=== PATIENT | female | born 1960 | race Caucasian/White ===

== ENCOUNTER 2020-12-18 11:25 | Outpatient (REF) | payer MEDICARE, MEDICAID, SELFPAY ==
--- NOTE | ~2020-12-18 | MM_ITS ---
EXAMINATION: MM SCREENING DIGITAL BREAST TOMOSYNTHESIS, BILATERAL CLINICAL INFORMATION: Screening. Asymptomatic. The lifetime risk of breast cancer based on the Tyrer-Cuzick Model is 12.7%. COMPARISON: Mammography: October 17, 2019 and studies dating back to June 19, 2013 TECHNIQUE: Digital breast tomosynthesis is performed in both the craniocaudal and mediolateral oblique views along with computer-aided detection (CAD). Synthesized 2D images are generated from the tomosynthesis. FINDINGS: The breasts are heterogeneously dense, which may obscure small masses (ACR BI-RADS breast composition Category c). There are no significant masses, abnormal calcifications, or other abnormalities. MM/MM tomosynthesis screening BI IMPRESSION: There are no significant changes from prior study. ASSESSMENT: BI-RADS 1: Negative RECOMMENDATION: Routine annual mammography screening. This patient's information was entered into a reminder system with a target due date for their next mammogram.
== END 2020-12-18 11:26 | disposition home or self-care (01) ==
LOC: HO.MAMMO 11:25
PROVIDERS: Visit Provider Internal Medicine
DX: Z12.31 Encounter for screening mammogram for malignant neoplasm of breast (principal)
CPT/HCPCS: 77063; 77067

== ENCOUNTER 2021-05-05 07:46 | Outpatient (REF) | payer MEDICARE, MEDICAID, SELFPAY ==
[2021-05-05 11:32] LABS: MANUAL DIFF FLAG NO
[2021-05-05 11:41] LABS: Basophils Percent Auto 0.4 % (0-2); Eosinophils Absolute Auto 0.1 X10*3/uL (0.0-0.4); Eosinophils Percent Auto 1.5 % (0-4); Hematocrit 44.4 % (37.0-47.0); Hemoglobin 14.3 g/dl (12.0-16.0); Imm Gran Abs Auto 0.02 X10*3/uL (0.00-0.03); Imm Gran Pct Auto 0.3 % (0.0-0.4); Lymphocytes Absolute Auto 1.7 X10*3/uL (1.2-4.9); Lymphocytes Percent Auto 25.7 % (20-40); Mean Corpuscular HGB Conc 32.2 g/dl (31.0-35.0); Mean Corpuscular Hemoglobin 32.1 pg (27.0-33.0); Mean Corpuscular Volume 99.6 fL (80.0-98.0); Mean Platelet Volume 13.1 fL (9.4-12.3); Monocytes Absolute Auto 0.7 X10*3/uL (0.1-1.2); Neutrophils Absolute Auto 4.2 x10*3/uL (2.0-8.3); Neutrophils Percent Auto 62.1 % (45-73); Platelet Count 179 X10*3/uL (160-400); Red Blood Count 4.46 X10*6/uL (4.20-5.50); Red Cell Distribution Width 13.2 % (11.0-16.0); White Blood Count 6.7 X10*3/uL (4.8-10.8)
[2021-05-05 12:06] LABS: Alanine Aminotransferase 40 U/L (0-31); Anion Gap 12 (12-20); Aspartate Amino Transferase 30 U/L (5-31); Blood Urea Nitrogen 15 mg/dL (9-16); Carbon Dioxide 31 mmol/L (22-29); Chloride 102 mmol/L (96-108); Cholesterol 251 mg/dL; Estimated Glomerular Filt Rate > 60; Glucose Fasting 81 mg/dL (60-99); HDL Cholesterol 66 mg/dL; LDL Cholesterol Calculated 164 mg/dl; Potassium 4.5 mmol/L (3.3-5.1); Sodium 140 mmol/L (135-145); Triglycerides 106 mg/dL; Vitamin D 25-OH Total 35.8 ng/mL (>30)
== END 2021-05-05 07:47 | disposition home or self-care (01) ==
LOC: HO.HMGCLDS 07:46
PROVIDERS: Visit Provider Internal Medicine
DX: Z00.01 Encounter for general adult medical examination with abnormal findings (principal); I10 Essential (primary) hypertension
CPT/HCPCS: 36415; 80048; 80061; 82306; 84450; 84460; 85025

== ENCOUNTER 2021-07-20 08:32 | Outpatient (REF) | payer MEDICARE, MEDICAID, SELFPAY | END 2021-07-20 08:33 | disposition home or self-care (01) | LOC: HO.HOSX 08:32 | PROVIDERS: Visit Provider Physician Assistant | DX: Z13.89 Encounter for screening for other disorder (principal) ==

== ENCOUNTER 2021-11-17 08:48 | Outpatient (REF) | payer MEDICARE, MEDICAID, SELFPAY ==
[2021-11-17 10:05] LABS: Alanine Aminotransferase 54 U/L (0-31); Albumin Level 4.7 g/dL (3.5-5.0); Alkaline Phosphatase 90 U/L (39-117); Anion Gap 16 (12-20); Aspartate Amino Transferase 34 U/L (5-31); Bilirubin Total 0.7 mg/dL (0.0-1.0); Blood Urea Nitrogen 17 mg/dL (9-16); Calcium 9.9 mg/dL (8.4-10.2); Carbon Dioxide 25 mmol/L (22-29); Chloride 101 mmol/L (96-108); Cholesterol 268 mg/dL; Estimated Glomerular Filt Rate > 60; Glucose Fasting 102 mg/dL (60-99); HDL Cholesterol 78 mg/dL; LDL Cholesterol Calculated 172 mg/dl; Potassium 4.7 mmol/L (3.3-5.1); Sodium 137 mmol/L (135-145); Triglycerides 94 mg/dL
== END 2021-11-17 08:49 | disposition home or self-care (01) ==
LOC: HO.LAB 08:48
PROVIDERS: PCP Internal Medicine; Visit Provider Internal Medicine
DX: E78.5 Hyperlipidemia, unspecified (principal); I10 Essential (primary) hypertension; Z72.89 Other problems related to lifestyle
CPT/HCPCS: 36415; 80053; 80061

== ENCOUNTER 2021-12-24 12:00 | Outpatient (RCR) | payer MEDICARE, MEDICAID, SELFPAY ==
[2021-11-13 08:57] VITALS: BP 157/100; PULSE 89
== END 2022-01-11 08:39 | disposition home or self-care (01) ==
LOC: HO.PT 12:00
PROVIDERS: PCP Internal Medicine; Visit Provider Orthopaedic Surgery
DX: S42.031D Displaced fracture of lateral end of right clavicle, subsequent encounter for fracture with routine healing (principal)
CPT/HCPCS: 97110; 97140; 97161; 97530

== ENCOUNTER 2021-12-28 11:51 | Outpatient (REF) | payer MEDICARE, MEDICAID, SELFPAY ==
--- NOTE | ~2021-12-28 | MM_ITS ---
EXAMINATION: MM SCREENING DIGITAL BREAST TOMOSYNTHESIS, BILATERAL CLINICAL INFORMATION: Screening. Asymptomatic. The lifetime risk of breast cancer based on the Tyrer-Cuzick Model is 13%. COMPARISON: Mammography: 12/18/2020, 10/15/2019, 10/11/2018 TECHNIQUE: Digital breast tomosynthesis is performed in both the craniocaudal and mediolateral oblique views along with computer-aided detection (CAD). Synthesized 2D images are generated from the tomosynthesis. FINDINGS: There are scattered areas of fibroglandular density (ACR BI-RADS breast composition Category b). There are no significant masses, abnormal calcifications, or other abnormalities. Fine fibronodular parenchymal pattern is similar to prior exams and there is no developing density or interval architectural abnormality. The axilla and skin contours are unremarkable. MM/MM tomosynthesis screening BI IMPRESSION: No mammographic evidence of malignancy. ASSESSMENT: BI-RADS 1: Negative RECOMMENDATION: Routine annual mammography screening. This patient's information was entered into a reminder system with a target due date for their next mammogram.
== END 2021-12-28 11:52 | disposition home or self-care (01) ==
LOC: HO.MAMMO 11:51
PROVIDERS: PCP Internal Medicine; Visit Provider Internal Medicine
DX: Z12.31 Encounter for screening mammogram for malignant neoplasm of breast (principal)
CPT/HCPCS: 77063; 77067

== ENCOUNTER 2022-01-08 08:44 | Outpatient (REF) | payer MEDICARE, MEDICAID, SELFPAY ==
--- NOTE | ~2022-01-08 | MM_ITS ---
EXAMINATION: BONE DENSITOMETRY CLINICAL INDICATION: Osteopenia. COMPARISON: Previous BD dated 07/20/2013 and baseline BD dated 11/29/2008. TECHNIQUE: Using a Cloud[employer]ure DXA System (software version: 13.1) manufactured by [employer], dual-energy x-ray absorptiometry was performed of the lumbar spine and left hip. The images are of good technical quality. Summary results are attached. FINDINGS: AP SPINE L1-L4: Current: BMD 1.001 g/cm2, Z-score -0.4, T-score -1.5, osteopenia, 5.3% decrease from previous, 6.1% decrease from baseline (<5% change is not significant). Prior: BMD 1.057 g/cm2. Baseline: BMD 1.066 g/cm2. LEFT FEMUR, NECK: Current: BMD 0.829 g/cm2, Z-score -0.3, T-score -1.5, osteopenia. Prior: BMD 0.856 g/cm2. Baseline: BMD 0.865 g/cm2. LEFT FEMUR, TOTAL: Current: BMD 0.886 g/cm2, Z-score -0.1, T-score -1.0, normal, 4.0% increase from previous, 3.5% decrease from baseline (<5% change is not significant). Prior: BMD 0.852 g/cm2. Baseline: BMD 0.918 g/cm2. IDENTIFIED RISK FACTORS: Early menopause, history of fracture (adult), low calcium intake, secondary osteoporosis. HISTORY OF FRACTURE: Other fracture. MEDICATIONS: None listed. MM/XR DEXA axial skeleton IMPRESSION: 1. DIAGNOSIS: Osteopenia based on the lowest T-score value of -1.5 in the lumbar spine and femur neck applying World Health Organization criteria. 2. 10-YEAR FRACTURE RISK PREDICTION, FRAX: Major osteoporotic fracture (clinical spine, forearm, hip or shoulder) 13.7%. Hip fracture 1.2%. 3. Treatment Recommendations: NOF guidelines recommend consideration for treatment in postmenopausal women and men age 50 and older presenting with the following: -A hip or vertebral (clinical or morphometric) fracture. -T-score less than or equal to -2.5 at the femoral neck or spine after appropriate evaluation to exclude secondary causes. -Low bone mass at the hip or spine and a 10-year fracture probability by FRAX of greater than or equal to 3% for hip fracture or greater than or equal to 20% for major osteoporotic fracture based on the [place] adapted WHO algorithm. 4. Other Recommendations: All treatment decisions require clinical judgment and consideration of individual patient factors, including patient preferences, comorbidities, previous drug use, risk factors not captured in the FRAX model (e.g. frailty, falls, vitamin D deficiency, increased bone turnover, interval significant decline in bone density) and possible under or overestimation of fracture risk by FRAX. Additional medical evaluation for secondary cause of low bone mineral density may be appropriate. FUTURE SCAN RECOMMENDATION: People with diagnosed cases of osteoporosis or at high risk for fracture should have regular bone mineral density tests. For patients eligible for Medicare, routine testing is allowed once every 2 years. The testing frequency can be increased to one year for patients who have rapidly progressing disease, those who are receiving or discontinuing medical therapy to restore bone mass, or have additional risk factors.
== END 2022-01-08 08:45 | disposition home or self-care (01) ==
LOC: HO.MAMMO 08:44
PROVIDERS: PCP Internal Medicine; Visit Provider Internal Medicine
DX: Z13.820 Encounter for screening for osteoporosis (principal); M85.859 Other specified disorders of bone density and structure, unspecified thigh; Z78.0 Asymptomatic menopausal state
CPT/HCPCS: 77080

== ENCOUNTER 2022-04-29 10:55 | Outpatient (REF) | payer MEDICARE, MEDICAID, SELFPAY ==
--- NOTE | ~2022-04-29 | US_ITS ---
EXAMINATION: US THYROID CLINICAL INFORMATION: Nontoxic single thyroid nodule. COMPARISON: None TECHNIQUE: Linear transducer grayscale and color Doppler examination with attention to the region of the thyroid. FINDINGS: SIZE: Measurements of the thyroid lobes and nodules are given in sagittal, anteroposterior and transverse dimensions respectively. Right Thyroid Lobe: 5.4 x 1.3 x 1.4 cm, volume 5.1 mL. Parenchyma: The gland echotexture is homogeneous. Thyroid vascularity is normal. Left Thyroid Lobe: 4.9 x 1.2 x 1.2 cm, volume 3.7 mL. Parenchyma: The gland echotexture is homogeneous. Thyroid vascularity is normal. Isthmus: 0.2 cm in maximum AP dimension. Estimated total number of nodules greater than or equal to 1 cm: 1. Director Of Sustainability nodules are described as follows: 1. Location: Right mid pole. Size: 0.3 x 0.1 x 0.2 cm, volume 0.1 mL. Nodule characteristics: Composition: Solid/almost completely solid (2). Echogenicity: Isoechoic (1). Shape: Not taller than wide (0). Margins: Smooth (0). Echogenic Foci: None (0). ACR TI-RADS total points: 3 ACR TI-RADS category: 3 2. Location: Right lower pole. Size: 0.4 x 0.3 x 0.4 cm, volume 0.3 mL. Nodule characteristics: Composition: Solid (2). Echogenicity: Hypoechoic (2). Shape: Not taller than wide (0). Margins: Smooth (0). Echogenic Foci: Comet-tail artifacts (0). ACR TI-RADS total points: 4 ACR TI-RADS category: 4 3. Location: Left mid pole. Size: 0.5 x 0.4 x 0.5 cm, volume 0.04 mL. Nodule characteristics: Composition: Mixed cystic and solid (1). Echogenicity: Isoechoic (1). Shape: Not taller than wide (0). Margins: Smooth (0). Echogenic Foci: None (0). ACR TI-RADS total points: 2 ACR TI-RADS category: 2 4. Location: Isthmus. Size: 1.4 x 0.8 x 1.3 cm, volume 0.8 mL. Nodule characteristics: Composition: Solid (2). Echogenicity: Isoechoic (1). Shape: Not taller than wide (0). Margins: Smooth (0). Echogenic Foci: None (0). ACR TI-RADS total points: 3 ACR TI-RADS category: 3 NODES: No lymphadenopathy is seen in the tissue surrounding the thyroid gland. US/US thyroid IMPRESSION: Multiple benign-appearing thyroid nodules with the largest measuring 1.4 cm and corresponding to a TI-RAD Category 3. No follow-up recommended by ACR TI-RADS reference. ACR TI-RADS RECOMMENDATION REFERENCE: * TR1 (0 point) and TR2 (2 points): No FNA or follow up. * TR3 (3 points): FNA if more than or equal to 2.5 cm in maximum dimension, followup ultrasound in 1, 3 and 5 years if 1.5 to 2.4 cm in maximum dimension. * TR4 (4-6 points): FNA if more than or equal to 1.5 cm in maximum dimension, followup ultrasound in 1, 2, 3 and 5 years if 1 to 1.4 cm in maximum dimension. * TR5 (more than or equal to 7 points): FNA if more than or equal to 1 cm in maximum dimension, followup ultrasound every year for 5 years if 0.5 to 0.9 cm in maximum dimension. * TR3, TR4 or TR5 nodules that are below the size threshold for followup receive no follow up.
== END 2022-04-29 10:56 | disposition home or self-care (01) ==
LOC: HO.US 10:55
PROVIDERS: PCP Internal Medicine; Visit Provider Internal Medicine
DX: E04.1 Nontoxic single thyroid nodule (principal)
CPT/HCPCS: 76536

== ENCOUNTER 2022-05-04 11:04 | Outpatient (REF) | payer MEDICARE, MEDICAID, SELFPAY ==
[2022-05-04 13:59] LABS: Hematocrit 44.4 % (37.0-47.0); Hemoglobin 14.6 g/dl (12.0-16.0); Mean Corpuscular HGB Conc 32.9 g/dl (31.0-35.0); Mean Corpuscular Hemoglobin 31.9 pg (27.0-33.0); Mean Corpuscular Volume 96.9 fL (80.0-98.0); Platelet Count 208 X10*3/uL (160-400); Red Blood Count 4.58 X10*6/uL (4.20-5.50); Red Cell Distribution Width 13.6 % (11.0-16.0); White Blood Count 7.4 X10*3/uL (4.8-10.8)
[2022-05-04 14:27] LABS: Alanine Aminotransferase 40 U/L (0-31); Albumin Level 4.4 g/dL (3.5-5.0); Alkaline Phosphatase 92 U/L (39-117); Anion Gap 15 (12-20); Aspartate Amino Transferase 26 U/L (5-31); Bilirubin Direct < 0.2 mg/dL (0.0-0.5); Bilirubin Total 0.5 mg/dL (0.0-1.0); Blood Urea Nitrogen 11 mg/dL (9-16); Carbon Dioxide 28 mmol/L (22-29); Chloride 101 mmol/L (96-108); Cholesterol 270 mg/dL; Estimated Glomerular Filt Rate > 60; Glucose Random 94 mg/dL (60-115); HDL Cholesterol 69 mg/dL; LDL Cholesterol Calculated 174 mg/dl; Potassium 4.6 mmol/L (3.3-5.1); Sodium 139 mmol/L (135-145); Total Protein 7.2 g/dL (6.5-8.0); Triglycerides 139 mg/dL
[2022-05-04 14:42] LABS: Thyroid Stimulating Hormone 1.71 uIU/mL (0.32-4.0)
== END 2022-05-04 11:05 | disposition home or self-care (01) ==
LOC: HO.HMGCLDS 11:04
PROVIDERS: PCP Internal Medicine; Visit Provider Internal Medicine
DX: E04.1 Nontoxic single thyroid nodule (principal)
CPT/HCPCS: 36415; 80048; 80061; 80076; 84443; 85027

== ENCOUNTER → 2022-06-02 08:52 | Outpatient (BNVA) | payer MEDICARE, MEDICAID, SELFPAY | PROVIDERS: PCP Internal Medicine; Visit Provider Internal Medicine | DX: E04.2 Nontoxic multinodular goiter (principal) | CPT/HCPCS: 99202 ==

== ENCOUNTER 2022-08-19 08:46 | Outpatient (REF) | payer MEDICARE, MEDICAID, SELFPAY ==
--- NOTE | 2022-08-19 10:15 | P.BOP_ITS ---
Brief Operative Note Date of Service: 08/19/22 Pre-op diagnosis: Thyroid Nodule Procedure: This is doctor Deisy Ordoñez. This is an ultrasound-guided fine-needle aspiration report. Indication: Multinodular Thyroid Porcedure: Procedure was explained to the patient. Alternatives, the risk and benefits were discussed. Written consent was obtained. A time-out was also obtained. After sterile preparation, 1 ml of 1% lidocaine solution was applied subcutaneously for anesthetic effect. Then Fine-needle aspiration of a left isthmus 1.3 cm thyroid nodule was performed using direct ultrasound guidance to confirm accurate needle placement. Five aspirations were made using 27 gauge needles. Samples were submitted for cytology. One pass was dedicated for [employer] Gene sequencing cassandra architect testing. The patient tolerated the procedure well. Aftercare instructions were provided. Impression: Uncomplicated fine needle aspiration biopsy of a left isthmus 1.3 cm thyroid nodule under ultrasound guidance. Surgeon: Deisy Ordoñez, DO Was an Warning Coordination Meteorologist used for this Procedure?: No Estimated blood loss (mL): 0
[2022-08-19] MEDS: Lidocaine HCl 1 % MPF 5 ML VIAL SUBCUT (10:55)
== END 2022-08-19 08:47 | disposition home or self-care (01) ==
LOC: HO.US 08:46
PROVIDERS: PCP Internal Medicine; Visit Provider Internal Medicine
DX: E04.2 Nontoxic multinodular goiter (principal)
CPT/HCPCS: 10005; 88172; 88173; 88177; 88305

== ENCOUNTER → 2022-09-02 12:42 | Outpatient (BNVA) | payer MEDICARE, MEDICAID, SELFPAY | PROVIDERS: PCP Internal Medicine; Visit Provider Internal Medicine | DX: E04.2 Nontoxic multinodular goiter (principal) | CPT/HCPCS: 99212 ==

== ENCOUNTER 2022-12-29 11:51 | Outpatient (REF) | payer MEDICARE, MEDICAID, SELFPAY | END 2022-12-29 11:52 | disposition home or self-care (01) | LOC: HO.MAMMO 11:51 | PROVIDERS: Visit Provider Internal Medicine | DX: Z12.31 Encounter for screening mammogram for malignant neoplasm of breast (principal) | CPT/HCPCS: 77063; 77067 ==

== ENCOUNTER → 2022-12-29 12:15 | Outpatient (BNV) | payer MEDICARE, MEDICAID, SELFPAY | PROVIDERS: Visit Provider Radiology Diagnostic Radiology | DX: Z12.31 Encounter for screening mammogram for malignant neoplasm of breast (principal) | CPT/HCPCS: 77063; 77067 ==

== ENCOUNTER 2023-03-17 12:43 | Outpatient (REF) | payer MEDICARE, MEDICAID, SELFPAY ==
[2023-03-17 12:59] LABS: MANUAL DIFF FLAG NO
[2023-03-17 13:43] LABS: Basophils Percent Auto 0.5 % (0-2); Eosinophils Absolute Auto 0.1 X10*3/uL (0.0-0.4); Eosinophils Percent Auto 1.1 % (0-4); Hematocrit 42.9 % (37.0-47.0); Hemoglobin 14.2 g/dl (12.0-16.0); Imm Gran Abs Auto 0.02 X10*3/uL (0.00-0.03); Imm Gran Pct Auto 0.3 % (0.0-0.4); Lymphocytes Absolute Auto 2.1 X10*3/uL (1.2-4.9); Lymphocytes Percent Auto 29.1 % (20-40); Mean Corpuscular HGB Conc 33.1 g/dl (31.0-35.0); Mean Corpuscular Hemoglobin 32.6 pg (27.0-33.0); Mean Corpuscular Volume 98.6 fL (80.0-98.0); Mean Platelet Volume 12.5 fL (9.4-12.3); Monocytes Absolute Auto 0.7 X10*3/uL (0.1-1.2); Monocytes Percent Auto 10.1 % (2-11); Neutrophils Absolute Auto 4.3 x10*3/uL (2.0-8.3); Neutrophils Percent Auto 58.9 % (45-73); Platelet Count 212 X10*3/uL (160-400); Red Blood Count 4.35 X10*6/uL (4.20-5.50); Red Cell Distribution Width 12.5 % (11.0-16.0); White Blood Count 7.4 X10*3/uL (4.8-10.8)
[2023-03-17 14:17] LABS: Alanine Aminotransferase 24 U/L (0-31); Anion Gap 14 (12-20); Aspartate Amino Transferase 24 U/L (5-31); Blood Urea Nitrogen 13 mg/dL (9-16); Calcium 10.3 mg/dL (8.4-10.2); Carbon Dioxide 30 mmol/L (22-29); Chloride 100 mmol/L (96-108); Cholesterol 230 mg/dL (<200); Estimated Glomerular Filt Rate > 60; Glucose Fasting 97 mg/dL (60-99); HDL Cholesterol 70 mg/dL (>40); LDL Cholesterol Calculated 144 mg/dL (<100); Potassium 4.8 mmol/L (3.3-5.1); Sodium 139 mmol/L (135-145); Triglycerides 81 mg/dL (<150)
[2023-03-17 14:33] LABS: TSH reflex Free T4 1.29 uIU/mL (0.32-4.0)
== END 2023-03-17 12:44 | disposition home or self-care (01) ==
LOC: HO.LAB 12:43
PROVIDERS: PCP Internal Medicine; Visit Provider Internal Medicine
DX: E04.2 Nontoxic multinodular goiter (principal); E78.5 Hyperlipidemia, unspecified; E28.319 Asymptomatic premature menopause; Z83.49 Family history of other endocrine, nutritional and metabolic diseases
CPT/HCPCS: 36415; 80048; 80061; 82306; 84443; 84450; 84460; 85025

== ENCOUNTER 2023-03-23 08:07 | Outpatient (AMB) | payer MEDICARE, MEDICAID, SELFPAY ==
--- NOTE | 2023-03-23 08:21 | AM.OFFVISMDC ---
Intake Vital Signs 03/23/23 08:25 Height 5 ft 6 in Weight 145 lb 6 oz BMI 23.5 BP 124/88 Blood Pressure Location Lt brachial Position Sitting Pulse 63 Pulse Source Pulse Oximeter Pulse Oximetry (%) 98 Oxygen Delivery Method Room Air Intake Visit Reasons: AWV Allergies No Known Allergies Allergy (Verified 03/23/23 08:54) codeine Adverse Reaction (Unknown, Verified 03/23/23 08:54) Nausea Medication List - Last Reconciled 03/23/23 by Ely Terry MD blood pressure monitor check blood pressure once a day as directed lisinopril 10 mg PO DAILY metoprolol succinate ER 12.5 mg PO DAILY timolol maleate 0.5% 0 drps ophthalmic (eye) HPI AWV HPI Details AWV ? 62 year old lady with hypertension, dyslipidemia, multinodular thyroid, osteopenia femoral neck and history of early menopause, legally blind, presents for her ? Annual Wellness Visit, initial visit.? She is up-to-date with her screening mammogram, and bone density scan, the latter showing presence of osteopenia and lumbar spine and left femoral neck, normal in left femur. She is overdue for her routine cervical cancer screening,, has had a fasting lipid panel and fasting blood sugar check done earlier this month which showed LDL cholesterol at 144 normal fasting glucose. Has had a screening colonoscopy done by Dr. Morris 08/06/2013 which showed normal findings. She has had her flu shot already and shingles vaccine and Tdap, reminded to get her COVID booster ? Medical / Social History Reviewed? Past Medical History ?Yes . ? [place] of Care / Care Team list updated ?Yes . ? Surgical/Hospitalization History ?Yes . ? Current Medications (including OTC and supplements) ?Yes . ? Family History ?Yes . ? Tobacco Control form ?Yes . ? AUDIT-C (Alcohol use) form ?Yes . ? Illicit drug use in Social History ?Yes . ? Current diagnosis of depression? ?No ? Appropriate PHQ2/PHQ9 completed ?Yes . ? Data entered by ?Merchant Tailor and reviewed by provider ? Fall Risk ? Fall History? Have you had any falls with injury in the past year? ?yes. ? Have you had two or more falls in the past year? ?No . ? Fall Risk Assessment: ?1 fall in the past year, no injury. ? HRA filled out by the patient, reviewed by Provider and scanned. ? AWV ? Balance? Romberg ?Yes . ? Tandem walk ?Yes . ? Walk and Turn ?Yes . ? Rise from sit to stand ?Yes . ?Vision? Corrective lens patient legally blind ? Vision screen ? Up-to-date, currently followed at [place] [facility] building energy consultant, and also sees Dr. Villalta ?Hearing? Whisper test ?pass . ?Written Plan?Completed. See Patient Documents.? [facility] Medical History (Updated 04/15/23 @ 19:02 by Ely Terry MD) Symptomatic PVCs Hair thinning Dyslipidemia Family history of thyroid disease Multinodular thyroid Closed fracture of right clavicle Early menopause occurring in patient age younger than 45 years Osteopenia of femoral neck Legally blind Hx of retinal detachment Essential hypertension Surgical History Hx of skin graft History of broken collarbone Hx of eye surgery Family History Mother Laryngeal cancer Father Thyroid disorder Sister Thyroid disorder Social History Housing: Condominium Alcohol intake: current Alcohol intake frequency: a few times a month Patient Tobacco Use Status: Former Tobacco user Tobacco use type: Cigarette e-Cigarette/Vaping Use: Never Used Current occupational status: disabled Cognitive needs: No Hearing needs: No Vision needs: Yes Questionnaire Medicare Wellness Checkup What gender do you identify with?: female During the past 4 weeks, how much have you been bothered by emotional problems such as feeling anxious, depressed, irritable, sad or downhearted, and blue?: slightly During the past 4 weeks, has your physical & emotional health limited your social activities with family, friends, neighbors, or groups?: moderately During the past 4 weeks, how much bodily pain have you generally had?: moderate pain During the past 4 weeks, was someone available to help you if you needed & wanted help?: yes, quite a bit During the past 4 weeks, what was the hardest physical activity you could do for at least 2 minutes?: light Can you get to places out of walking distance without help? (For eg., can you travel alone on buses, taxis or drive your car?): No Can you go shopping for groceries or clothes without someone's help?: No Can you prepare your own meals?: Yes Can you do your housework without help?: Yes Because of any health problems, do you need the help of another person with your personal care needs such as eating, bathing, dressing or getting around the house?: No Can you handle your own money without help?: Yes During the past 4 weeks, how would you rate your health in general?: good During the past 4 weeks how have things been going for you?: good & bad parts about equal Are you having difficulties driving your car?: not applicable, I don't use a car Do you always fasten your seat belt when you are in a car?: yes, usually During past 4 weeks, have you been bothered by the following: never: Sexual problems?, sometimes: Trouble eating well?, Problems using the telephone? and Tiredness or fatigue? and often: Falling or dizzy when standing up and Teeth or denture problems? Have you fallen 2 or more times in the past year?: Yes Are you afraid of falling?: Yes Are you a smoker?: no During the past 4 weeks, how many drinks of wine, beer, or other alcoholic beverages did you have?: 2-5 drinks per week Do you exercise for about 20 minutes 3 or more times a week?: yes, some of the time Have you been given information to help with the following?: no: Hazards in your house that might hurt you? and no: Keeping track of your medications? How often do you have trouble taking medicines the way you have been told to take them?: I always take medicine as prescribed How confident are you that you can control & manage most of your health problems?: not very confident What is your race?: White Mini Mental State Exam (MMSE) Orientation What is the (year) (season) (date) (day) (month)?: year (2022), season (winter), date (03/23/23), day (Tuesday) and month (February) Where are we (state) (county) (town or city) (hospital) (floor)?: state ([place]), [facility] ([place]), town or city ([place]) and hospital/clinic ([facility]) Score Score: 9 Activity of Daily Living Bathing - sponge bath, tub bath or shower: receives no assistance (gets in/out by self, if usual bathing means Dressing - getting clothes from closets & drawers, including inner/outer garments & fasteners.: gets clothes & gets completely dressed without help Toileting - going to the 'toilet room' for urine/bowel elimination & cleaning self/arranging clothes: goes to toilet room, cleans self, arranges clothes without help Transfer: moves in & out of bed and chair without help (may use support object) Continence: controls urination/bowel movements completely by self Feeding: feeds self without help Total Score: 0 Information obtained from: patient Using telephone: independent Traveling: independent Shopping: dependent Preparing meals: needs assistance Housework: needs assistance Taking medicine: needs assistance Managing money: needs assistance PHQ-9 Over the last 2 weeks, how often have you been bothered by any of the following problems? 1. Little interest or pleasure in doing things: several days 2. Feeling down, depressed, or hopeless: not at all 3. Trouble falling or staying asleep, or sleeping too much: more than half the days 4. Feeling tired or having little energy: several days 5. Poor appetite or overeating: several days 6. Feeling bad about yourself - or that you are a failure or have let yourself or your family down: not at all 7. Trouble concentrating on things, such as reading the newspaper or watching television: several days 8. Moving or speaking so slowly that other people could have noticed. Or the opposite - being so fidgety or restless that you have been moving around a lot more than usual: not at all 9. Thoughts that you would be better off or of hurting yourself in some way: not at all Total score: 6 Source: Developed by Drs. Cedric Ortiz, Laisha Rivas, Tc Quach and colleagues, with an educational gilma from [employer]. Physical Exam Vital Signs: Last Vital Signs Pulse 63 03/23/23 08:25 BP 124/88 03/23/23 08:25 Pulse Ox 98 03/23/23 08:25 Oxygen Delivery Method Room Air 03/23/23 08:25 BMI result Body Mass Index 23.5 Results Reviewed Results Reviewed: Name: Carlita Lewis Age/Sex: 62/F : 1960 Unit#: [id number] Attend Dr: Ely Terry MD Re03/17/23 Status: DEP [facility] SPEC : [id number] YAMINI: 03/17/23 STATUS: COMP REQ : [id number] RECD: 03/17/[address]: Ely Terry MD COMP: 03/17/23-1433 ENTERED: 03/17/23-[address]: ORDERED: Met Prof Fast, AST, ALT, Lipid Panel, Vitamin D 25-OH, TSH Rflx Test Result Flag Reference Site Sodium 139 135-145 mmol/L Potassium 4.8 3.3-5.1 mmol/L CL 100 96-108 mmol/L CO2 30 H 22-29 mmol/L Gap 14 12-20 BUN 13 9-16 mg/dL Creat 0.80 0.5-1.4 mg/dL EGFR > 60 NOTE: For -[place] individuals, multiply the result by 1.210. Chronic Kidney Disease: Estimated GFR < 60 mL/min/1.73m2 Severe Kidney Disease: Estimated GFR < 15 mL/min/1.73m2 FBS 97 60-99 mg/dL CA 10.3 H 8.4-10.2 mg/dL AST (GOT) 24 5-31 U/L ALT (GPT) 24 0-31 U/L Triglyceride 81 <150 mg/dL Desirable Triglyceride: less than 150 mg/dL Borderline High Triglyceride 150-199 mg/dL High Triglyceride: 200-499 mg/dL Very High Triglyceride: greater than or equal to 5OO mg/dL Cholesterol 230 H <200 mg/dL Desirable Cholesterol: less than 200 mg/dL Borderline High Cholesterol: 200-239 mg/dL High Cholesterol: greater than 239 mg/dL LDL Calculated 144 H <100 mg/dL Desirable LDL: less than 100 mg/dL Near Optimal/Above Optimal LDL: 110-129 mg/dL Borderline High LDL: 130-159 mg/dL High LDL: 160-189 mg/dL Very High LDL: greater than or equal to 190 mg/dL HDL 70 >40 mg/dL Desirable HDL: greater than 40 mg/dL Note: This HDL assay may give artificially low results in patients with liver disease. Vit D 25-OH Tot 44.0 >30 ng/mL Health Based Reference Values* < 20 ng/mL Deficient 20-30 ng/mL Insufficient > 30 ng/mL Sufficient *Radha PATEL. N Engl J Med. 2007;357:266-280 Care must be taken in interpreting Vitamin D results from different laboratories and methodologies. Published data demonstrated that results from patients undergoing hemodialysis may show a negative bias when tested with various automated 25-OH vitamin D assays when compared to LC-MS/MS. When testing samples from patients whose predominant form of Vitamin D is Vitamin D2, such as patients receiving Vitamin D2 supplementation, results that are subtherapeutic should be confirmed with another method such as LC-MS/MS. TSH 1.29 0.32-4.0 uIU/mL END OF REPORT Assessment & Plan Assessment & Plan (1) Encounter for initial annual wellness visit (AWV) in Medicare patient: Code(s): Z00.00 - Encounter for general adult medical examination without abnormal findings Plan: Medical wellness checklist, discussed with patient, reviewed and updated. Patient referred to [facility] for her routine Pap and pelvic exam. (2) Cervical cancer screening: Code(s): Z12.4 - Encounter for screening for malignant neoplasm of cervix Plan: Referred to [facility] for her cervical cancer screening and pelvic exam (3) Dyslipidemia: Code(s): E78.5 - Hyperlipidemia, unspecified Plan: Reviewed recent fasting lipid profile with patient with LDL cholesterol at 144 mg/dL . Stressed importance of adherence to low-cholesterol diet and regular exercise, at least 30 minutes 3 to 4 times a week. Advised patient to make healthy food choices, eat more fruits, vegetables, whole grains, wild caught fish and low-fat dairy. Limit amount of meat and fried or fatty food products, as well as processed foods and fast foods. (4) Osteopenia of femoral neck: Code(s): M85.859 - Other specified disorders of bone density and structure, unspecified thigh Plan: Advised to do regular exercise, take adequate calcium from dietary sources and take at least vitamin-D 3 2000 units daily (5) Legally blind: Comment: sees Dr villalta and a specialst in [place] Code(s): H54.8 - Legal blindness, as defined in [place] Plan: Followed by Ophthalmology (6) Essential hypertension: Code(s): I10 - Essential (primary) hypertension Plan: Blood pressure controlled on present treatment, currently on lisinopril 5 mg daily (7) Advanced directives, counseling/discussion: Code(s): Z71.89 - Other specified counseling Plan: Initiated the conversation about Advanced Directives. Advanced Directives help patients prepare for current and future decisions about their medical treatment and place of care. Discussed with patient that it is a process where a patients current condition and prognosis are reviewed, their wishes for information regarding their illness are elicited, and likely medical dilemmas are presented and options discussed. Healthcare proxy form and MOLST form completed today. These forms can be amended as needed, reviewed yearly and make changes as needed (8) Symptomatic PVCs: Comment: Seen by [facility] cardiology in [facility] August 2022 and started on metoprolol ER Code(s): I49.3 - Ventricular premature depolarization Plan: Continue with metoprolol ER 12.5 mg 1 a day Orders: Referrals ENDOSCOPE TECHNICIAN Referral Z12.4 - Encounter for screening for malignant neoplasm of cervix Quality Reporting (2019) Depression/Bipolar (159/160/161/177) PHQ-9: Total score: 6 Coding Level of Care Code Medicare First (G0438) Diagnoses Encounter for initial annual wellness visit (AWV) in Medicare patient Z00.00 Cervical cancer screening Z12.4 Dyslipidemia E78.5 Osteopenia of femoral neck M85.859 Legally blind H54.8 Essential hypertension I10 Advanced directives, counseling/discussion Z71.89 Symptomatic PVCs I49.3 CPT Codes Advance Care Planning - Time spent: 16-45 minutes ([id number]) Advance Care Planning Advance Care Planning discussion: Completed/Scanned Date of discussion: 03/23/23 Who was present: Patient Forms completed: Health Care Proxy and MOLST Time spent: 16-45 minutes Actual minutes spent: 16
[2023-03-23 08:25] VITALS: BP 124/88; PULSE 63; O2SAT 98; BMI 23.5
== END 2023-03-23 09:35 | disposition home or self-care (01) ==
PROVIDERS: PCP Internal Medicine; Visit Provider Internal Medicine
DX: Z00.00 Encounter for general adult medical examination without abnormal findings (principal); E78.5 Hyperlipidemia, unspecified; M85.859 Other specified disorders of bone density and structure, unspecified thigh; H54.8 Legal blindness, as defined in USA; I10 Essential (primary) hypertension; I49.3 Ventricular premature depolarization
CPT/HCPCS: 99497; G0438

== ENCOUNTER 2023-07-12 08:21 | Outpatient (REF) | payer MEDICARE, MEDICAID, SELFPAY ==
--- NOTE | ~2023-07-12 | US_ITS ---
EXAMINATION: US THYROID CLINICAL INFORMATION: Nontoxic multinodular goiter. COMPARISON: Ultrasound-guided thyroid biopsy 08/19/2022. Thyroid ultrasound 04/29/2022. TECHNIQUE: Linear transducer grayscale and color Doppler examination with attention to the region of the thyroid. FINDINGS: SIZE: Measurements of the thyroid lobes and nodules are given in sagittal, anteroposterior and transverse dimensions respectively. Right Thyroid Lobe: 4.4 x 0.9 x 1.0 cm, volume 2.2 mL. Previously 5.4 x 1.3 x 1.4 cm, volume 5.1 mL. Parenchyma: The gland echotexture is homogeneous. Thyroid vascularity is normal. Left Thyroid Lobe: 4.6 x 0.9 x 1.2 cm, volume 2.6 mL. Previously 4.9 x 1.2 x 1.2 cm, volume 3.7 mL. Parenchyma: The gland echotexture is homogeneous. Thyroid vascularity is normal. Isthmus: 0.2 cm in maximum AP dimension. Previously 0.2 cm. Estimated total number of nodules greater than or equal to 1 cm: 1. Student Recruiter nodules are described as follows: 1. Location: Isthmus. Size: 1.5 x 0.6 x 1.3 cm, volume 0.6 mL. Previously: 1.4 x 0.8 x 1.3 cm, volume 0.8 mL. Nodule characteristics: Composition: Solid (2). Echogenicity: Hypoechoic (2). Shape: Not taller than wide (0). Margins: Smooth (0). Echogenic Foci: None (0). ACR TI-RADS total points: 4 ACR TI-RADS category: 4 Significant change in size (>/= 20% in 2 dimensions and minimal increase of 2 mm or 50% or greater increase in volume): No Change in features: Not with accounting for differences in interobserver variability, as imaging findings appear similar to prior. Remainder of tiny thyroid nodules measuring 5 mm or less unchanged in size do not meet criteria for follow-up. NODES: No lymphadenopathy is seen in the tissue surrounding the thyroid gland. US/US thyroid IMPRESSION: 1.5 cm TR 4 isthmus nodule which was previously sampled is not increased in size from prior. Recommend correlation with prior pathology. Remainder of the thyroid nodules measuring 5 mm or less are unchanged in size and do not meet criteria for follow-up. ACR TI-RADS RECOMMENDATION REFERENCE: Ultrasound-guided fine-needle aspiration, follow up ultrasound, no further followup. * TR1 (0 point) and TR2 (2 points): No FNA or followup * TR3 (3 points): FNA if more than or equal to 2.5 cm in maximum dimension, follow up ultrasound in 1, 3 and 5 years if 1.5 to 2.4 cm in maximum dimension. * TR4 (4-6 points): FNA if more than or equal to 1.5 cm in maximum dimension, follow up ultrasound in 1, 2, 3 and 5 years if 1 to 1.4 cm in maximum dimension. * TR5 (more than or equal to 7 points): FNA if more than or equal to 1 cm in maximum dimension, follow up ultrasound every year for 5 years if 0.5 to 0.9 cm in maximum dimension. * TR3, TR4 or TR5 nodules that are below the size threshold for follow up receive no followup.
== END 2023-07-12 08:22 | disposition home or self-care (01) ==
LOC: HO.US 08:21
PROVIDERS: PCP Internal Medicine; Visit Provider Internal Medicine Endocrinology, Diabetes & Metabolism
DX: E04.2 Nontoxic multinodular goiter (principal)
CPT/HCPCS: 76536

== ENCOUNTER 2023-08-17 08:52 | Outpatient (REF) | payer MEDICARE, MEDICAID, SELFPAY ==
[2023-08-24 22:47] LABS: HPV mRNA E6/E7 rflx Not Detected (Not Detected)
== END 2023-08-17 08:53 | disposition home or self-care (01) ==
LOC: HO.LNP 08:52
PROVIDERS: PCP Internal Medicine; Visit Provider Advanced Practice Midwife
DX: Z01.419 Encounter for gynecological examination (general) (routine) without abnormal findings (principal); Z11.51 Encounter for screening for human papillomavirus (HPV)
CPT/HCPCS: 87624; 88142; G0101; Q0091

== ENCOUNTER 2023-08-17 08:52 | Outpatient (AMB) | payer MEDICARE, MEDICAID, SELFPAY ==
--- NOTE | 2023-08-17 09:18 | MHC.OFFVIS ---
Vital Signs 08/17/23 09:20 Height 5 ft 5 in Weight 146 lb BMI 24.3 BP 122/82 Intake Visit Reasons: New patient Annual Obstetrics Gynecology Md Required: No Information Interpreted: non-clinical & clinical Hospitality Host: Hospitality Host Present (Jeanne) Allergies No Known Allergies Allergy (Verified 08/17/23 09:21) codeine Adverse Reaction (Unknown, Verified 08/17/23 09:21) Nausea Is last menstrual period known: No Post menopausal: Yes Patient : No HPI Comments Details: She is a postmenopausal woman presenting for her new patient annual obstetrics gynecology md examination. She is doing well with no concerns. Attempting to eat a healthy diet with calcium and vitamin D and stays active with exercise. Currently not sexually active. Denies any vaginal dryness or irritation. STI testing offered; she declines. Last pap smear; unknown, many years ago. Last mammogram; 2022. Colonoscopy is UTD. Denies any family history of ovarian or colon cancer. FH breast cancer-sister in 's. [facility] Medical History Symptomatic PVCs Hair thinning Dyslipidemia Family history of thyroid disease Multinodular thyroid Closed fracture of right clavicle Early menopause occurring in patient age younger than 45 years Osteopenia of femoral neck Legally blind Hx of retinal detachment Essential hypertension Surgical History Hx of skin graft History of broken collarbone Hx of eye surgery Family History (Updated 08/17/23 @ 09:24 by POWER Ramirez) Mother Laryngeal cancer Father Thyroid disorder Stomach cancer Sister Thyroid disorder Breast cancer Social History Housing: Condominium Alcohol intake: current Alcohol intake frequency: a few times a month Patient Tobacco Use Status: Former Tobacco user Tobacco use type: Cigarette e-Cigarette/Vaping Use: Never Used Current occupational status: disabled Cognitive needs: No Hearing needs: No Vision needs: Yes Female Reproductive History Menstrual Age of Menarche: 15 control method: none Total pregnancies: 0 Date of last pap smear: 07/16/08 (negative) History of abnormal pap smear: No Date of Mammogram: 12/29/22 Review of Systems Const All systems reviewed & are unremarkable except as noted in HPI and below Reports as per HPI Eyes Reports no additional complaints ENT Reports no additional complaints Card Reports no additional complaints Resp Reports no additional complaints GI Reports as per HPI and Reports no additional complaints Reports as per HPI Musc Reports no additional complaints Skin/Breast Reports as per HPI Neuro Reports no additional complaints Psych Reports no additional complaints Endo Reports no additional complaints Lai/Lymph Reports no additional complaints Aller/Immun Reports no additional complaints Physical Exam Vital Signs: Last Vital Signs BP 122/82 08/17/23 09:20 BMI result Body Mass Index 24.3 Const General: cooperative, healthy appearing, no acute distress, well developed and alert Orientation/consciousness: patient oriented x3 HEENT Head: Yes normal to inspection Eyes General: appearance normal, both eyes and all related structures Neck Neck: Yes normal visual inspection Thyroid: solitary palpable nodule (Left side) Chest Chest palpation & inspection: normal inspection of the chest and other (no puckering, dimpling, peau de orange, retraction, discharge, masses) Breast/axilla inspection: normal inspection of the breasts Breast/axilla palpation: normal palpation of the breasts Resp Effort & Inspection: normal respiratory effort GI Inspection: Yes normal to inspection Palpation (GI): Soft to palpation Rectal Exam - Female: deferred General: Yes bladder normal to palpation External Female Exam: normal external appearance and normal appearance of the urethra Speculum Exam - Vagina: normal appearance of the vagina, normal palpation, normal vaginal discharge and vagina atrophic Speculum Exam - Cervix: normal appearance of the cervix, normal palpation and Other cervical findings present (Bled very slightly with Pap) Bimanual exam- vagina & uterus: normal bimanual exam, normal palpation, uterine size normal, bladder normal to palpation, normal palpation and non-tender Bimanual Exam- Adnexa, other: no masses Skin General skin exam: no rashes or lesions noted Rashes: no rashes Neuro General: patient oriented x3 Cognition (Neuro): normal cognition Extrem General: Yes normal to inspection Psych Attitude: cooperative Thought process: Normal thought process present Assessment & Plan Assessment & Plan (1) Encounter for well woman exam with routine gynecological exam: Code(s): Z01.419 - Encounter for gynecological examination (general) (routine) without abnormal findings Category: Medical Plan: Discussed: Current recommendations for pap smears per ASCCP guidelines. Breast awareness, periodic self breast exams and yearly mammogram. Maintain a healthy lifestyle, well balanced diet including Calcium 1,200 mg and Vitamin D 600 IU daily, and routine exercise. Contact the office with any postmenopausal bleeding. Patient verbalizes understanding and agrees to the plan of care. She was given opportunity to ask questions and all questions were answered to the best of my ability. RTO in 1 year for annual obstetrics gynecology md exam. This note is constructed using voice recognition software. While every effort has been made to ensure accuracy, firer electric locomotive errors may have been included. Coding Level of Care Code New Pt Prev Care 40-64y(43820) Diagnoses Encounter for well woman exam with routine gynecological exam Z01.419
[2023-08-17 09:20] VITALS: BP 122/82; BMI 24.3
== END 2023-08-17 10:21 | disposition home or self-care (01) ==
PROVIDERS: PCP Internal Medicine; Referring Provider Internal Medicine; Visit Provider Advanced Practice Midwife
DX: Z01.419 Encounter for gynecological examination (general) (routine) without abnormal findings (principal)
CPT/HCPCS: G0101; Q0091

== ENCOUNTER 2023-08-31 10:29 | Outpatient (REF) | payer MEDICARE, MEDICAID, SELFPAY ==
[2023-08-31 12:38] LABS: Free T4 (Free Thyroxine) 0.93 ng/dL (0.71-1.85); Thyroid Stimulating Hormone 1.24 uIU/mL (0.32-4.0)
== END 2023-08-31 10:30 | disposition home or self-care (01) ==
LOC: HO.LAB 10:29
PROVIDERS: Visit Provider Internal Medicine
DX: E04.2 Nontoxic multinodular goiter (principal)
CPT/HCPCS: 36415; 84439; 84443

== ENCOUNTER 2023-09-05 08:31 | Outpatient (AMB) | payer MEDICARE, MEDICAID, SELFPAY ==
[2023-09-05 08:38] VITALS: BP 130/90; PULSE 60; BMI 24.2
--- NOTE | 2023-09-05 08:38 | MHC.OFFVIS ---
Vital Signs 09/05/23 08:38 Height 5 ft 5 in Weight 145 lb 4.554 oz BMI 24.2 BP 130/90 H Blood Pressure Location Lt brachial Position Sitting Pulse 60 Pulse Source Pulse Oximeter Intake Visit Reasons: NTMNG-confirmed Intake Note: Patient presents today for NTMNG follow up, last seen by Dr. Grewal on 09/02/2022. Machine Hose Cutter Required: No Accompanied by: Self / Same As Patient Allergies No Known Allergies Allergy (Verified 09/05/23 08:44) codeine Adverse Reaction (Unknown, Verified 09/05/23 08:44) Nausea Medication List - Last Reconciled 09/05/23 by Cedric Lee MD blood pressure monitor check blood pressure once a day as directed lisinopril 5 mg PO DAILY metoprolol succinate ER 12.5 mg PO DAILY timolol maleate 0.5% 0 drps ophthalmic (eye) HPI Comments Details: 62 YO F with PMHx multinodular thyroid who is seen in F/U for the same. The patient last saw Dr. Grewal on 09/02/2022 Was initially diagnosed with multinodular thyroid in 2022 with thyroid US revealing a 1.4 cm isthmus nodule. She reports that she noticed this nodule just this year when she felt something pressing in her neck while attempting to swallow in an awkward position. She presented to her PCP and had an US completed which revealed bilateral thyroid nodules. She underwent FNA biopsy of this left isthmus 1.3 cm thyroid nodule 08/19/2022 with benign cytology. She presents today to review these results. Currently denies any dysphagia or hoarseness of voice. Denies sensation of swelling in the neck or difficulty breathing while lying flat. Denies any symptoms of hyper or hypothyroidism. TSH is at goal off any thyroid medication. Denies any history of head or neck irradiation. Denies any family history of thyroid cancer. Father did have his thyroid removed, but she is unsure why or what the diagnosis was. She reports her Sister had hypothyroidism. Thyroid US: 04/29/2022 Right Thyroid Lobe: 5.4 x 1.3 x 1.4 cm, volume 5.1 mL. Parenchyma: The gland echotexture is homogeneous. Thyroid vascularity is normal. Left Thyroid Lobe: 4.9 x 1.2 x 1.2 cm, volume 3.7 mL. Parenchyma: The gland echotexture is homogeneous. Thyroid vascularity is normal. Isthmus: 0.2 cm in maximum AP dimension. Estimated total number of nodules greater than or equal to 1 cm: 1. Catia Designer nodules are described as follows: 1. Location: Right mid pole. ?? ? Size: 0.3 x 0.1 x 0.2 cm, volume 0.1 mL. ?? ? Nodule characteristics: ?? ? Composition: Solid/almost completely solid (2). ?? ? Echogenicity: Isoechoic (1). ?? ? Shape: Not taller than wide (0). ?? ? Margins: Smooth (0). ?? ? Echogenic Foci: None (0). ?? ? ACR TI-RADS total points: 3 ?? ? ACR TI-RADS category: 3 2. Location: Right lower pole. ?? ? Size: 0.4 x 0.3 x 0.4 cm, volume 0.3 mL. ?? ? Nodule characteristics: ?? ? Composition: Solid (2). ?? ? Echogenicity: Hypoechoic (2). ?? ? Shape: Not taller than wide (0). ?? ? Margins: Smooth (0). ?? ? Echogenic Foci: Comet-tail artifacts (0). ?? ? ACR TI-RADS total points: 4 ?? ? ACR TI-RADS category: 4 3. Location: Left mid pole. ?? ? Size: 0.5 x 0.4 x 0.5 cm, volume 0.04 mL. ?? ? Nodule characteristics: ?? ? Composition: Mixed cystic and solid (1). ?? ? Echogenicity: Isoechoic (1). ?? ? Shape: Not taller than wide (0). ?? ? Margins: Smooth (0). ?? ? Echogenic Foci: None (0). ?? ? ACR TI-RADS total points: 2 ?? ? ACR TI-RADS category: 2 4. Location: Isthmus. ?? ? Size: 1.4 x 0.8 x 1.3 cm, volume 0.8 mL. ?? ? Nodule characteristics: ?? ? Composition: Solid (2). ?? ? Echogenicity: Isoechoic (1). ?? ? Shape: Not taller than wide (0). ?? ? Margins: Smooth (0). ?? ? Echogenic Foci: None (0). ?? ? ACR TI-RADS total points: 3 ?? ? ACR TI-RADS category: 3 NODES: No lymphadenopathy is seen in the tissue surrounding the thyroid gland. Labs: Laboratory Tests 05/04/22 11:09 TSH 1.71 recent thyroid ultrasound did not show any change in the size of the nodule PFSH Medical History Symptomatic PVCs Hair thinning Dyslipidemia Family history of thyroid disease Multinodular thyroid Closed fracture of right clavicle Early menopause occurring in patient age younger than 45 years Osteopenia of femoral neck Legally blind Hx of retinal detachment Essential hypertension Surgical History Hx of skin graft History of broken collarbone Hx of eye surgery Family History Mother Laryngeal cancer Father Thyroid disorder Stomach cancer Sister Thyroid disorder Breast cancer Social History Housing: Condominium Alcohol intake: current Alcohol intake frequency: a few times a month Patient Tobacco Use Status: Former Tobacco user Tobacco use type: Cigarette e-Cigarette/Vaping Use: Never Used Current occupational status: disabled Cognitive needs: No Hearing needs: No Vision needs: Yes Female Reproductive History Menstrual Age of Menarche: 15 Physical Exam Vital Signs: Last Vital Signs Pulse 60 09/05/23 08:38 BP 130/90 H 09/05/23 08:38 BMI result Body Mass Index 24.2 Const Other: Thyroid gland is normal size weighs about 15 g. There are no thyroid nodules palpated Assessment & Plan Assessment & Plan (1) Multinodular thyroid: Code(s): E04.2 - Nontoxic multinodular goiter Category: Medical Plan: This 62-year-old white female with a history of left isthmus thyroid nodule status post FNA with benign cytology. Recent thyroid ultrasound showed no change in the size of the nodule. Patient appears to be clinically biochemically euthyroid. Plan is for observation. At this point, patient returned to the care of her primary care provider who could recheck a thyroid ultrasound about 2-3 years time. If the nodule changes in size or consistency, the patient returned back to endocrinology Coding Level of Care Code Est Pt Level 3 (02303) Diagnoses Multinodular thyroid E04.2
== END 2023-09-05 09:05 | disposition home or self-care (01) ==
PROVIDERS: PCP Internal Medicine; Visit Provider Internal Medicine Endocrinology, Diabetes & Metabolism
DX: E04.2 Nontoxic multinodular goiter (principal)
CPT/HCPCS: 99213

== ENCOUNTER → 2023-09-05 08:31 | Outpatient (BNVA) | payer MEDICARE, MEDICAID, SELFPAY | PROVIDERS: PCP Internal Medicine; Visit Provider Internal Medicine Endocrinology, Diabetes & Metabolism | DX: E04.2 Nontoxic multinodular goiter (principal) | CPT/HCPCS: 99212 ==

== ENCOUNTER → 2023-12-22 08:34 | Outpatient (BNVA) | payer MEDICARE, MEDICAID, SELFPAY | PROVIDERS: PCP Internal Medicine ==

== ENCOUNTER 2024-01-04 11:46 | Outpatient (REF) | payer MEDICARE, MEDICAID, SELFPAY ==
--- NOTE | ~2024-01-04 | MM_ITS ---
EXAMINATION: MM SCREENING DIGITAL BREAST TOMOSYNTHESIS, BILATERAL CLINICAL INFORMATION: Screening. Asymptomatic. COMPARISON: Mammography: Comparison is made with available priors TECHNIQUE: Digital breast mammography with tomosynthesis is performed in both the craniocaudal and mediolateral oblique views along with computer-aided detection (CAD). FINDINGS: The breasts are heterogeneously dense, which may obscure small masses (ACR BI-RADS breast composition Category c). There are no significant masses, abnormal calcifications, or other abnormalities. MM/MM tomosynthesis screening BI IMPRESSION: No mammographic evidence of malignancy. ASSESSMENT: BI-RADS BI-RADS 1 - Negative RECOMMENDATION: Routine annual mammography screening. 1 year F/U This examination should not preclude the clinical evaluation of a suspicious palpable abnormality. This patient's information was entered into a reminder system with a target due date for their next mammogram. Electronically signed by: Tiesha Morris DO 01/16/2024 05:58 PM EDT
== END 2024-01-04 11:47 | disposition home or self-care (01) ==
LOC: HO.MAMMO 11:46
PROVIDERS: PCP Internal Medicine; Visit Provider Internal Medicine
DX: Z12.31 Encounter for screening mammogram for malignant neoplasm of breast (principal)
CPT/HCPCS: 77063; 77067

== ENCOUNTER → 2024-01-04 12:15 | Outpatient (BNV) | payer MEDICARE, MEDICAID, SELFPAY | PROVIDERS: PCP Internal Medicine; Visit Provider Internal Medicine | DX: Z12.31 Encounter for screening mammogram for malignant neoplasm of breast (principal) | CPT/HCPCS: 77063; 77067 ==

== ENCOUNTER 2024-01-16 10:35 | Emergency (ER) | payer MEDICARE, MEDICAID, SELFPAY ==
--- NOTE | ~2024-01-16 | XR_ITS ---
EXAMINATION: XR LUMBOSACRAL SPINE CLINICAL INFORMATION: Lower back pain. COMPARISON: Lumbar spine radiographs dated 10/13/2010. TECHNIQUE: Three views of the lumbosacral spine. FINDINGS: The lumbar lordosis is maintained. Grade 1 anterolisthesis of L5 on S1 measuring 0.8 cm in AP dimension with chronic bilateral spondylolysis. No loss of vertebral body height. Severe loss of intervertebral disc height with degenerative endplate changes at L5-S1. No concerning lytic or blastic osseous lesion. Atherosclerotic calcifications. XR/XR lumbar spine 2-3V IMPRESSION: Grade 1 anterolisthesis of L5 on S1 with chronic bilateral spondylolysis and severe degenerative disc disease. Electronically signed by: Harvey Braun MD 01/16/2024 02:29 PM EDT
[2024-01-16 10:38] VITALS: BP 140/56; PULSE 73; O2SAT 96
[2024-01-16 10:49] VITALS: BP 136/88; PULSE 63; RESP 18; TEMP 37.2; O2SAT 99; BMI 25.0
--- NOTE | 2024-01-16 11:09 | ED_ITS ---
HPI - General Adult General Chief complaint: Back Pain/Injury Stated complaint: LOW BACK PAIN,H/O BACK ISSUES PER EMS Time Seen by Provider: 01/16/24 11:08 Source: patient and EMS Mode of arrival: EMS Limitations: no limitations History of Present Illness ED Provider: karen HPI narrative: Patient is a 63 yo female presents via EMS with PMH of PVCs, Dyslipidemia, multinodular thyroid, early menopause <45yo, osteopenia of femoral neck, legally blind, HTN, and spondylolisthesis presenting with 3 days of increasing low back pain. Reports a chronic history of spondylolisthesis and can tell this is an exacerbation of this problem. States she can't even sit, she has to lie down on the floor to find comfort. Denies any recent inciting injury, reports she did grocery shopping on and then laundry on Tuesday and this is when the exacerbation seemed to really flair up, and since Tuesday she has only been able to lie flat. Denies parathesias, saddle anesthesia, denies bowel or bladder incontinence. MD complaint: back pain Onset (ago): day(s) Location: back Related Data Home Medications ?Medication ?Instructions ?Recorded ?Confirmed timolol maleate 0.5 % eye drops 0 drp ophthalmic (eye) 05/15/21 12/01/23 metoprolol succinate 25 mg 12.5 mg PO DAILY 11/19/21 12/01/23 tablet,extended release 24 hr Previous Rx's ?Medication ?Instructions ?Recorded blood pressure monitor #1 ea 05/15/21 lisinopril 2.5 mg tablet 2.5 mg PO DAILY #30 tabs 12/26/23 cyclobenzaprine 10 mg tablet 10 mg PO TID PRN muscle spasm #10 01/16/24 tabs lidocaine 5 % topical patch 1 patch topical DAILY #15 ea 01/16/24 Allergies Allergy/AdvReac Type Severity Reaction Status Date / Time codeine AdvReac Unknown Nausea Verified 01/16/24 10:52 Review of Systems Review of Systems: As per HPI. Yes all other systems are reviewed and are negative Constitutional: Constitutional: Reports as per HPI [facility] Past Medical History Medical History Symptomatic PVCs Hair thinning Dyslipidemia Family history of thyroid disease Multinodular thyroid Closed fracture of right clavicle Early menopause occurring in patient age younger than 45 years Osteopenia of femoral neck Legally blind Hx of retinal detachment Essential hypertension Surgical History Hx of skin graft History of broken collarbone Hx of eye surgery Family History Family History Mother Laryngeal cancer Father Thyroid disorder Stomach cancer Sister Thyroid disorder Breast cancer Social History Social History Housing: Condominium Alcohol intake: current Alcohol intake frequency: a few times a month Patient Tobacco Use Status: Former Tobacco user Tobacco use type: Cigarette e-Cigarette/Vaping Use: Never Used Advance Directives: No Advance Directives Information Provided: Yes Do you have a plan to hurt others: No Plan Current occupational status: disabled Cognitive needs: No Hearing needs: No Vision needs: Yes Physical Exam ED Vital Signs: Vital Signs - 24 hr 01/16/24 10:49 Temperature 98.9 F Pulse Rate 63 Respiratory Rate 18 Blood Pressure 136/88 Pulse Oximetry 99 Oxygen Delivery Method Room Air BMI result Body Mass Index 25.0 Vital signs have been reviewed and appear to be correct. Blood pressure normal. Heart rate normal. Respiratory rate normal. Temperature normal. Oxygen saturation normal. Appearance: Alert. Oriented X3. No acute distress. Head: normocephalic, atraumatic. Eyes: Pupils equal, round and reactive to light. ENT: Pharynx normal. No tonsillar swelling or exudate. Neck: Normal inspection. Neck supple. CVS: Normal heart rate and rhythm. Pulses normal. Respiratory: No respiratory distress. Breath sounds normal. Abdomen: Soft and nontender. +BS x4 Skin: Skin warm and dry. Normal skin color. Normal skin turgor. No rashes. Extremities: No lower extremity edema. No joint swelling. Neuro/psych: Oriented X 3. No motor deficit. No sensory deficit. CN II-XII intact. Normal speech and cognition. Spine: tender to palpation at spiny process to lumbar spine. Limited ROM due to discomfort, relief found with erect spine. Const General: cooperative, healthy appearing and no acute distress Orientation/consciousness: oriented to person, oriented to place, oriented to time and patient oriented x3 Limitations: no limitations HENMT Head: Yes normocephalic and Yes atraumatic Ears: external ears normal General nose exam: Normal external nose present Face and sinus: Yes face symmetric Mouth: oropharynx normal and moist mucous membranes Throat: Yes uvula midline Eyes Pupils: Equal, round and reactive pupils present Neck Neck: Yes normal visual inspection and Yes supple Resp Effort & Inspection: normal respiratory effort and able to speak in complete sentences Auscultation: clear to auscultation bilaterally Cardio Rate: regular rate Rhythm: regular rhythm Heart sounds: S1 normal heart sound present and S2 normal heart sound present GI Palpation (GI): Soft to palpation and nontender Auscultation: normoactive bowel sounds General: Yes no CVA tenderness Back/Spine/Pelvis Back: no CVA tenderness Thoracic/Lumbar Spine: lumbar spinal tenderness Skin General skin exam: elasticity normal and turgor normal Neuro General: oriented to person, oriented to place, oriented to time, patient oriented x3, moves all extremities, no focal motor deficits and CN's II-XI intact bilaterally Cranial nerves: Yes Equal, round and reactive pupils present Cognition (Neuro): normal cognition Gait exam (Neuro): Antalgic gait present Extrem General: Yes full ROM, Yes no pedal edema and Yes no calf tenderness Psych Mental Status: mental status grossly normal Affect: normal affect Thought process: Normal thought process present Medications Administered Discontinued Medications Generic Name Dose Route Start Last Admin Trade Name Freq PRN Reason Stop Dose Admin Cyclobenzaprine HCl 10 mg 01/16/24 14:55 01/16/24 15:38 Cyclobenzaprine Hcl 10 Mg Tablet PO 01/16/24 14:56 10 mg ONCE ONE Administration Ketorolac Tromethamine 30 mg 01/16/24 14:55 01/16/24 15:36 Ketorolac Tromethamine 30 Mg/Ml Vial IM 01/16/24 14:56 30 mg ONCE ONE Administration Prednisone 50 mg 01/16/24 14:55 01/16/24 15:38 Prednisone 10 Mg Tablet PO 01/16/24 14:56 50 mg ONCE ONE Administration Medical Decision Making Medical Decision Making [facility] Narrative: Patient is a 63 yo female presents via EMS with PMH of PVCs, Dyslipidemia, multinodular thyroid, early menopause <45yo, osteopenia of femoral neck, legally blind, HTN, and spondylolisthesis presenting with 3 days of increasing low back pain. Tender to palpation of the lumbar spine, notable palpation of the spinous process on exam. Negative for radiating pain, numbness or tingling. Gait is antalgic, although the upright position is relieving. Prefers laying flat on hospital bed, this is where she finds most comfort. Given reported symptoms and physical exam findings, initial differential includes lumbar strain, lumbar radiculopathy, degenerative disc disease, disc herniation, spinal stenosis, spondylosis. Less likely vertebral fracture. Do not suspect malignancy/mass, SEA, cauda equina/cord compression. Patient initially declining pain medication, states more concerned with obtaining xray. X-ray notable for grade 1 anterolisthesis of L5 on S1 with bilateral spondylosis and severe DDD. My interpretation is in agreement with the radiologist's interpretation. Patient updated on results and states she is now willing to try pain medication, has not been taking anything other than Tylenol. Feels as though she will need PT eval if pain does not improve as she has only found relief by laying on the floor at home for the past several days. Will try toradol, flexeril and prednisone and reassess. Patient reports significant improvement in symptoms after medications given in the ED, ambulated in department with steady gait without difficulty, and states that she feels comfortable with discharge home with flexeril. She notes that she does not want additional steroids due to her glaucoma. She is requesting a referral to Dr. Joel. Return precautions discussed at bedside. Patient verbalized understanding of and agreement with plan. Differential Diagnosis Differential Diagnoses: The differential diagnosis associated with the presentation includes mechanical sprain/strain, degenerative disc disease, disc herniation, spondylosis, spondylolisthesis, cauda equina syndrome, Admission/Observation Consideration of admission/observation: Escalation of care including admission/observation considered Patient would have been admitted to the hospital had their work up had any findings where hospital admission was appropriate and their clinical presentation warranted hospital admission. Independent Interpretation I performed an independent interpretation of an: Plain X-Ray Interpretation: Lumbar xray shows anterolisthesis of L5/S1. Radiology Impression Discussion of test interpretation with radiology: I have reviewed the radiologist's reading. Radiologist Impression: FINDINGS: The lumbar lordosis is maintained. Grade 1 anterolisthesis of L5 on S1 measuring 0.8 cm in AP dimension with chronic bilateral spondylolysis. No loss of vertebral body height. Severe loss of intervertebral disc height with degenerative endplate changes at L5-S1. No concerning lytic or blastic osseous lesion. Atherosclerotic calcifications. XR/XR lumbar spine 2-3V IMPRESSION: Grade 1 anterolisthesis of L5 on S1 with chronic bilateral spondylolysis and severe degenerative disc disease. External Record Review External record reviewed: Inpatient record, Office record and Outpatient record Prescription Management I considered prescription management with: Other Discharge Plan Discharge Clinical Impression: Anterolisthesis of lumbosacral spine Patient Disposition: Home, Self-Care Instructions: Spondylolisthesis (ED) Additional Instructions: You were evaluated in the emergency department today for back pain. Your evaluation did not show signs of medical conditions requiring emergent intervention at this time. We recommended that you use ibuprofen or Tylenol per package directions every 6 hours as needed for pain. If necessary, you can alternate these medications so that you take one medication every 3 hours. For instance, at noon take ibuprofen, then at 3:00 p.m. take Tylenol, then at 6:00 p.m. take ibuprofen. You have been prescribed a muscle relaxer which you may take every 8 hours as needed for spasms. You have been prescribed 5% topical lidocaine patches which you can wear for up to 12 hours in a 24 hour period. Do not apply heat directly over the patches. Please schedule an appointment for follow-up with your primary care physician as well as Dr. Joel this week for further evaluation of your symptoms. Return to the emergency department if you experience worsening back pain, difficulty walking, fevers, numbness, tingling, incontinence, groin numbness or tingling, or any other concerning symptoms. Prescriptions: New cyclobenzaprine 10 mg tablet 10 mg PO TID PRN (Reason: muscle spasm) Qty: 10 0RF lidocaine 5 % adhesive patch,medicated 1 patch topical DAILY Qty: 15 0RF Rx Instructions: leave on most painful area for up to 12 hrs No Action lisinopril 2.5 mg tablet 2.5 mg PO DAILY Qty: 30 0RF metoprolol succinate 25 mg tablet extended release 24 hr 12.5 mg PO DAILY timolol maleate 0.5 % drops 0 drp ophthalmic (eye) (DME) blood pressure monitor Kit See Rx Instructions .Route Qty: 1 0RF Rx Instructions: check blood pressure once a day as directed Referrals: Michael Joel MD, PhD [Physician] - 1 week (FINDINGS: The lumbar lordosis is maintained. Grade 1 anterolisthesis of L5 on S1 measuring 0.8 cm in AP dimension with chronic bilateral spondylolysis. No loss of vertebral body height. Severe loss of intervertebral disc height with degenerative endplate changes at L5-S1. No concerning lytic or blastic osseous lesion. Atherosclerotic calcifications. XR/XR lumbar spine 2-3V IMPRESSION: Grade 1 anterolisthesis of L5 on S1 with chronic bilateral spondylolysis and severe degenerative disc disease.) Print Language: Amharic
[2024-01-16] MEDS: Ketorolac Tromethamine 30 MG/ML VIAL IM (15:36)
[2024-01-16] MEDS: predniSONE 10 MG TABLET 50 MG PO (15:38)
[2024-01-16] MEDS: Cyclobenzaprine HCl 10 MG TABLET PO (15:38)
[2024-01-16 16:47] VITALS: BP 145/92; PULSE 68; RESP 18; TEMP 36.2; O2SAT 99
[2024-01-16 16:59] VITALS: BP 145/92; PULSE 68; RESP 18; TEMP 36.2; O2SAT 99
== END 2024-01-16 16:59 | disposition home or self-care (01) ==
PROVIDERS: Emergency Provider Emergency Medicine; PCP Internal Medicine
DX: M43.17 Spondylolisthesis, lumbosacral region (principal); M54.50 Low back pain, unspecified; I10 Essential (primary) hypertension; H54.8 Legal blindness, as defined in USA; E78.5 Hyperlipidemia, unspecified
CPT/HCPCS: 72100; 96372; 99283; 99284; J1885

== ENCOUNTER 2024-01-18 13:49 | Outpatient (AMB) | payer MEDICARE, MEDICAID, SELFPAY ==
--- NOTE | 2024-01-18 14:04 | HO.SPINEOV ---
Intake Visit Reasons: ED f/u Intake Note: Ms. lewis is here today for a f/u after being at the ED for low back pain. Stonemason Supervisor Required: No Allergies codeine Adverse Reaction (Unknown, Verified 01/18/24 14:09) Nausea Assessment & Plan Assessment & Plan (1) Spondylolisthesis of lumbar region: Code(s): M43.16 - Spondylolisthesis, lumbar region Category: Medical Plan Dear SUN Hui, Thank you for referring Ms. Lewis to our office today. She is a pleasant 63-year-old female who comes in today with a chief complaint of low back pain which has been persistent for the past 33 years but was exacerbated last Tuesday. The patient was evaluated in the emergency department after what she describes as a long day of strenuous activity. She has had previous exacerbations of her low back pain in the past but feels as though this is worse than previous. She has tried several [id number]-[id number] medications including Tylenol and ibuprofen without significant relief of symptoms. She is currently taking cyclobenzaprine and using lidocaine patches with only minimal relief. She has been to the chiropractor multiple times in the past and effort to help treat this, and has attempted physical therapy. She did at one point find physical therapy helpful for her during a previous exacerbation. She reports that lying flat on her back in a certain position helps to alleviate some of her symptoms. Excessive activity exacerbates her pain. She denies any radicular pains down either leg, and reports no significant sensational deficits. She does not report any bowel or bladder issues. PMH: Legally blind with history of bilateral detached retina surgery, PVCs, dyslipidemia, thyroid nodules, high blood pressure, osteopenia, glaucoma. Social hx: The patient does not smoke, does not report any substance use. Medications: Lisinopril, timolol, metoprolol, cyclobenzaprine, lidocaine patches. Allergies: Codeine. Physical exam: The patient has 5/5 strength in her upper and lower extremities, but does elicit pain to bilateral iliopsoas testing. She ambulates well without assistive devices. She has difficulties with transition from lying to seated to standing. No significant sensational deficits on examination. (-) bilateral straight leg raise, (-) Babinski's, (-) Witt's, (-) clonus. Imaging review: X-ray imaging completed in our emergency department shows evidence of a notable spondylolisthesis at L5-S1 with severe degenerative disc disease causing near complete loss of the disc space at L5-S1. There is also evidence of a pars interarticularis defect at L5-S1 Impression: Carlita is a pleasant 63-year-old female who comes in today with a chief complaint of chronic low back pain that was exacerbated by long day of strenuous activity last weekend. She was evaluated in the ED here at [facility] and sent to our office for evaluation. She has tried several forms of conservative treatment in the past. I believe that her pain is most likely coming from the listhesis seen at L5-S1. This is likely progressive as a result of her pars interarticularis defect. Because of the chronic nature of this condition accompanied by the severe collapse of disc space, I would like to obtain a CT scan of the lumbar spine to evaluate for auto fusion at this level. Assuming there is none, I will send the patient for an MRI of the lumbar spine to evaluate for any nerve impingement secondary to the listhesis. Tentatively, I believe the patient would still be a good candidate for a lumbar fusion at this level to address her severe low back pain. Based on her DEXA scan imaging her highest T-score was -1.5, which puts her on the lower spectrum of osteopenia (-1.1 to -2.4 range). Before we consider this I would like to send her for a course of physical therapy and have the previously discussed imaging completed. Thank you for allowing us to care for your patient. The total time spent with this visit with this patient was 45 minutes reviewing history, physical exam, MRI imaging review, and implementation of treatment plan or further diagnostic testing Suleman Joel MD,PhD [facility] Orders: Orders XR lumbar spine 4V min Today M43.16 - Spondylolisthesis, lumbar region Coding Level of Care Code New Pt Level 4 (78625) Diagnoses Spondylolisthesis of lumbar region M43.16
== END 2024-01-18 15:12 | disposition home or self-care (01) ==
PROVIDERS: PCP Internal Medicine; Visit Provider Physician Assistant
DX: M43.16 Spondylolisthesis, lumbar region (principal)
CPT/HCPCS: 99204

== ENCOUNTER 2024-01-18 13:49 | Outpatient (REF) | payer MEDICARE, MEDICAID, SELFPAY | END 2024-01-18 13:50 | disposition home or self-care (01) | LOC: HO.HOSX 13:49 | PROVIDERS: PCP Internal Medicine; Visit Provider Physician Assistant | DX: M43.16 Spondylolisthesis, lumbar region (principal) | CPT/HCPCS: 72110; 99202 ==

== ENCOUNTER → 2024-01-18 15:01 | Outpatient (BNV) | payer MEDICARE, MEDICAID, SELFPAY | PROVIDERS: PCP Internal Medicine; Visit Provider Radiology Diagnostic Radiology | DX: M43.16 Spondylolisthesis, lumbar region (principal) | CPT/HCPCS: 72110 ==

== ENCOUNTER 2024-02-10 07:34 | Outpatient (REF) | payer MEDICARE, MEDICAID, SELFPAY | END 2024-02-10 07:35 | disposition home or self-care (01) | LOC: HO.CT 07:34 | PROVIDERS: PCP Internal Medicine; Visit Provider Physician Assistant | DX: M43.17 Spondylolisthesis, lumbosacral region (principal) | CPT/HCPCS: 72131 ==

== ENCOUNTER → 2024-02-10 07:36 | Outpatient (BNV) | payer MEDICARE, MEDICAID, SELFPAY | PROVIDERS: PCP Internal Medicine; Visit Provider Radiology Diagnostic Radiology | DX: M43.17 Spondylolisthesis, lumbosacral region (principal) | CPT/HCPCS: 72131 ==

== ENCOUNTER → 2024-04-11 07:46 | Outpatient (BNV) | payer MEDICARE, MEDICAID, SELFPAY | PROVIDERS: PCP Internal Medicine; Visit Provider Radiology Diagnostic Radiology | DX: M43.17 Spondylolisthesis, lumbosacral region (principal) | CPT/HCPCS: 72148 ==

== ENCOUNTER 2024-04-11 08:07 | Outpatient (REF) | payer MEDICARE, MEDICAID, SELFPAY ==
--- NOTE | ~2024-04-11 | MR_ITS ---
CLINICAL HISTORY: M43.17 - Spondylolisthesis, lumbosacral region MR Lumbar Spine Without Intravenous Contrast. Comparison: None Findings: No acute fracture or pathologic bone lesion. 8 mm anterolisthesis of L5 on S1 due to bilateral pars interarticularis defects at L5. Alignment is otherwise anatomic. Conus medullaris and cauda equina are normal. Spinal cord terminates posterior to L1. L1-L2: No central canal or foraminal stenosis. L2-L3: Circumferential disc bulge without central canal or foraminal stenosis. L3-L4: Circumferential disc bulge without central canal or foraminal stenosis. L4-L5: Broad-based posterior disc protrusion with annular tear. No significant central canal or foraminal stenosis. L5-S1: Anterolisthesis as described with moderate bilateral facet hypertrophy. Mild left and moderate right neural foraminal encroachment. There is some flattening of the exiting nerve root on the right Unremarkable paraspinous soft tissues. IMPRESSION: 8 mm anterolisthesis of L5 on S1 due to bilateral pars interarticularis defects. There is bilateral neural foraminal narrowing at this level, mild on the left and moderate on the right with flattening of the exiting nerve root on the right. This document has been electronically signed by: Yue Mcqueen MD on 04/12/2024 05:18:42
== END 2024-04-11 08:08 | disposition home or self-care (01) ==
LOC: HO.MRI 08:07
PROVIDERS: PCP Internal Medicine; Visit Provider Physician Assistant
DX: M43.17 Spondylolisthesis, lumbosacral region (principal)
CPT/HCPCS: 72148

== ENCOUNTER 2024-04-27 07:47 | Outpatient (REF) | payer MEDICARE, MEDICAID, SELFPAY ==
[2024-04-27 08:55] LABS: Alanine Aminotransferase 36 U/L (0-31); Anion Gap 15 (12-20); Aspartate Amino Transferase 37 U/L (5-31); Blood Urea Nitrogen 15 mg/dL (9-16); Calcium 10.3 mg/dL (8.4-10.2); Carbon Dioxide 27 mmol/L (22-29); Chloride 103 mmol/L (96-108); Cholesterol 211 mg/dL (<200); Estimated Glomerular Filt Rate > 60; Glucose Fasting 93 mg/dL (60-99); HDL Cholesterol 50 mg/dL (>40); LDL Cholesterol Calculated 142 mg/dL (<100); Potassium 4.6 mmol/L (3.3-5.1); Sodium 140 mmol/L (135-145); Triglycerides 98 mg/dL (<150)
[2024-04-27 09:14] LABS: TSH reflex Free T4 2.19 uIU/mL (0.32-4.0); Vitamin D 25-OH Total 48.5 ng/mL (>30)
== END 2024-04-27 07:48 | disposition home or self-care (01) ==
LOC: HO.LAB 07:47
PROVIDERS: PCP Internal Medicine; Visit Provider Internal Medicine
DX: E78.5 Hyperlipidemia, unspecified (principal); L65.9 Nonscarring hair loss, unspecified; E04.2 Nontoxic multinodular goiter; M85.859 Other specified disorders of bone density and structure, unspecified thigh; I10 Essential (primary) hypertension
CPT/HCPCS: 36415; 80048; 80061; 82306; 84443; 84450; 84460

== ENCOUNTER 2024-04-30 13:06 | Outpatient (AMB) | payer MEDICARE, MEDICAID, SELFPAY ==
[2024-04-30 13:34] VITALS: BP 122/80; PULSE 76; RESP 14; TEMP 36.7; O2SAT 98; BMI 24.5
--- NOTE | 2024-04-30 13:34 | MHC.PC.OV ---
Vital Signs 04/30/24 13:34 Height 5 ft 5 in Weight 147 lb BMI 24.5 BP 122/80 Blood Pressure Location Rt brachial Position Sitting Respiration 14 Pulse 76 Pulse Source Pulse Oximeter Temp 98.0 F Temp Source Oral Pulse Oximetry (%) 98 Oxygen Delivery Method Room Air Intake Visit Reasons: Annual, PE Intake Note: Pt is here today for her PE: Last mammogram 01/04/24, colonoscopy 08/06/13, papsmear 08/18/23 Allergies codeine Adverse Reaction (Unknown, Verified 05/06/24 23:16) Nausea Medication List - Last Reconciled 04/30/24 by Ely Terry MD biotin (Hair, Skin and Nails (biotin)) mcg PO blood pressure monitor check blood pressure once a day as directed lisinopril 2.5 mg PO DAILY metoprolol succinate ER 12.5 mg PO DAILY timolol maleate 0.5% 0 drps ophthalmic (eye) Tobacco use date assessed: 04/30/24 Dental Screening Dental Screen Date: 04/30/24 Did you have a dental visit in the last 12 months?: Yes Did you have a dental problem in the last 6 months where you did not have access to dental care?: No Was dental information given to patient?: Patient has dentist HPI Annual, PE HPI Details - The patient is a 63-year-old female presenting today for physical exam. - she has chronic low back pain related to grade 2 spondylolisthesis, and a pars interarticularis defect at L5-S1 contributing to the grade 2 spondylolisthesis at this area. She has been evaluated by spine surgery who has recommended surgical correction, but patient is very averse to the idea of surgery at this point in time. He then referred her to pain management to discuss pain control/conservative measures. A lumbar MRI was ordered . Patient currently getting physical therapy with an emphasis on stabilization exercises. - she has Osteopenia in the lumbar spine and left femoral regions from the 2021 bone density test. -she has been experiencing hypotensive episodes, leading to reduced Lisinopril dosage to 2.5 mg, continues to take metoprolol succinate ER 12.5 mg at bedtime to control her PVCs, currently followed by Cardiology. -she is up-to-date with her breast cancer screening, with last mammogram done 01/04/24, last screening colonoscopy 08/06/13, and up-to-date with cervical cancer screening, with last papsmear done 08/18/23 -she has history of retinal detachment in left eye, legally blind and has glaucoma, followed by Dr. Villalta. - she has history of left isthmus thyroid nodule status post FNA with benign cytology. Recent thyroid ultrasound showed no change in the size of the nodule. Patient appears to be clinically biochemically euthyroid.Plan is for observation and recheck a thyroid ultrasound about 2-3 years time. [facility] Medical History (Updated 04/30/24 @ 14:24 by Ely Terry MD) Osteopenia of multiple sites Symptomatic PVCs Hair thinning Dyslipidemia Family history of thyroid disease Multinodular thyroid Closed fracture of right clavicle Early menopause occurring in patient age younger than 45 years Legally blind Hx of retinal detachment Essential hypertension Surgical History Hx of skin graft History of broken collarbone Hx of eye surgery Family History Mother Laryngeal cancer Father Thyroid disorder Stomach cancer Sister Thyroid disorder Breast cancer Social History Housing: Condominium Alcohol intake: current Alcohol intake frequency: a few times a month Patient Tobacco Use Status: Former Tobacco user Tobacco use type: Cigarette e-Cigarette/Vaping Use: Never Used Current occupational status: disabled Cognitive needs: No Hearing needs: No Vision needs: Yes Female Reproductive History Menstrual Age of Menarche: 15 Questionnaire PHQ-9 Over the last 2 weeks, how often have you been bothered by any of the following problems? 1. Little interest or pleasure in doing things: not at all 2. Feeling down, depressed, or hopeless: not at all 3. Trouble falling or staying asleep, or sleeping too much: several days 4. Feeling tired or having little energy: several days 5. Poor appetite or overeating: several days 6. Feeling bad about yourself - or that you are a failure or have let yourself or your family down: not at all 7. Trouble concentrating on things, such as reading the newspaper or watching television: several days 8. Moving or speaking so slowly that other people could have noticed. Or the opposite - being so fidgety or restless that you have been moving around a lot more than usual: not at all 9. Thoughts that you would be better off or of hurting yourself in some way: not at all Total score: 4 Depression Screening Interpretation: Negative Depression Screening Done: Yes 79479 - PHQ-9 Billing: Yes Source: Developed by Drs. Cedric Ortiz, Laisha Rivas, Tc Quach and colleagues, with an educational gilma from [employer]. Thrive Questionnaire Date Thrive assessed: 04/30/24 I am a: Patient What is your living situation today?: I have a steady place to live Within the past 12 months, did the food you bought not last and you didn't have the money to get more?: Never true Within the past 12 months, did you worry whether your food would run out before you got money to buy more?: Never true Do you have trouble paying for medicines?: No Do you have trouble getting transportation to medical appointments?: No Do you have trouble paying your heating and electricity bill?: No Do you have trouble taking care of your child, family member or friend?: No Do you have trouble with day-to-day activities such as bathing, preparing meals, shopping, managing finances, etc.?: No Are you currently unemployed and looking for a job?: No Are you interested in more education?: No THRIVE Score: 0 AUDIT C Alcohol Use Questionnaire (AUDIT-C) 1. How often do you have a drink containing alcohol?: 2-4 times a month 2. How many drinks containing alcohol do you have on a typical day when you are drinking?: 1 or 2 3. How often do you have six or more drinks on one occasion?: Never Total Score: 2 SEJAL-7 AMB Questionnaire SEJAL-7 Date SEJAL - 7 assessed: 04/30/24 Feeling nervous, anxious, or on edge: 1 = Several days Not being able to stop or control worryin = Several days Worrying too much about different things: 1 = Several days Trouble relaxin = Not at all Being so restless that it is hard to sit still: 0 = Not at all Becoming easily annoyed or irritable: 1 = Several days Feeling afraid as if something awful might happen: 0 = Not at all Total SEJAL-7 score (0-4 normal; 5-9 mild; 10-14 moderate; 15-21 severe): 4 Source: Developed by Drs. Cedric Ortiz, Laisha Rivas, Tc Quach and colleagues, with an educational gilma from [employer]. SEJAL-7 Assessment Billing SEJAL-7 Assessment Tool: SEJAL-7 Assessment 57624 Review of Systems Const All systems reviewed & are unremarkable except as noted in HPI and below Reports as per HPI Eyes Details: Legally blind in left eye Reports no additional complaints ENT Reports no additional complaints Card Reports no additional complaints Resp Reports no additional complaints GI Reports as per HPI and Reports no additional complaints Reports as per HPI Musc Reports no additional complaints Skin/Breast Reports as per HPI Neuro Reports no additional complaints Psych Reports no additional complaints Endo Reports no additional complaints Lai/Lymph Reports no additional complaints Aller/Immun Reports no additional complaints Physical exam (Primary Care) Vital Signs: Last Vital Signs Temp 98.0 F 04/30/24 13:34 Pulse 76 04/30/24 13:34 Resp 14 04/30/24 13:34 BP 122/80 04/30/24 13:34 Pulse Ox 98 04/30/24 13:34 Oxygen Delivery Method Room Air 04/30/24 13:34 BMI result Body Mass Index 24.5 Tobacco/Smoking Status: Tobacco use Status Tobacco use date assessed 04/30/24 04/30/24 13:42 Patient Tobacco Use Status Former Tobacco user 04/30/24 13:42 Tobacco use type Cigarette 04/30/24 13:42 e-Cigarette/Vaping Use Never Used 04/30/24 13:42 PHQ-9: PHQ-9 Score PHQ-9: Total score 4 05/06/24 23:42 Depression Screening Interpretation: Negative Thrive Assessment: Date of Thrive Assessment Date Thrive assessed 04/30/24 05/06/24 23:42 Const General: cooperative, comfortable and no acute distress Nutritional Appearance: average body habitus Orientation/consciousness: patient oriented x3 HENMT Head: Yes normocephalic Ears: hearing grossly normal bilaterally and external ears normal General nose exam: Normal external nose present Face and sinus: Yes face symmetric Mouth: Normal oral and palatal mucosa present and moist mucous membranes Eyes General: appearance normal, both eyes and all related structures Neck Neck: Yes full ROM, Yes no lymphadenopathy and Yes supple Chest Breast/axilla palpation: normal palpation of the breasts Resp Effort & Inspection: normal respiratory effort and able to speak in complete sentences Auscultation: clear to auscultation bilaterally Cardio Rate: regular rate Rhythm: regular rhythm Heart sounds: S1 normal heart sound present and S2 normal heart sound present GI Palpation (GI): Soft to palpation, nontender and no guarding Auscultation: normal bowel sounds Back/Spine/Pelvis Thoracic/Lumbar Spine: paraspinal muscle tenderness bilaterally in the upper lumbar and in the mid lumbar Skin General skin exam: no rashes or lesions noted Neuro General: patient oriented x3, gait normal, moves all extremities, no focal motor deficits and CN's II-XI intact bilaterally Extrem General: Yes full ROM, Yes no pedal edema, Yes no calf tenderness and Yes normal gait Psych Appearance: grossly normal and well kempt Mental Status: mental status grossly normal Speech and movement: Normal speech and movement present Affect: normal affect Results Reviewed Results Reviewed: Name: Carlita Lewis Age/Sex: 63/F : 1960 Unit#: [id number] Attend Dr: Ely Terry MD Re04/27/24 Status: DEP [facility]: SPEC : [id number] YAMINI: 04/27/24 STATUS: COMP REQ : [id number] RECD: 04/27/[address]: Ely Terry MD COMP: 04/27/24 ENTERED: 04/27/[address]: ORDERED: Met Prof Fast, AST, ALT, Lipid Panel, Vitamin D 25-OH, TSH Rflx Test Result Flag Reference Sodium 140 135-145 mmol/L Potassium 4.6 3.3-5.1 mmol/L CL 103 96-108 mmol/L CO2 27 22-29 mmol/L Gap 15 12-20 BUN 15 9-16 mg/dL Creat 0.79 0.5-1.4 mg/dL eGFR > 60 Chronic Kidney Disease: Estimated GFR < 60 mL/min/1.73m2 Severe Kidney Disease: Estimated GFR < 15 mL/min/1.73m2 FBS 93 60-99 mg/dL CA 10.3 H 8.4-10.2 mg/dL AST (GOT) 37 H 5-31 U/L ALT (GPT) 36 H 0-31 U/L Triglyceride 98 <150 mg/dL Desirable Triglyceride: less than 150 mg/dL Borderline High Triglyceride 150-199 mg/dL High Triglyceride: 200-499 mg/dL Very High Triglyceride: greater than or equal to 5OO mg/dL Cholesterol 211 H <200 mg/dL Desirable Cholesterol: less than 200 mg/dL Borderline High Cholesterol: 200-239 mg/dL High Cholesterol: greater than 239 mg/dL LDL Calculated 142 H <100 mg/dL Desirable LDL: less than 100 mg/dL Near Optimal/Above Optimal LDL: 110-129 mg/dL Borderline High LDL: 130-159 mg/dL High LDL: 160-189 mg/dL Very High LDL: greater than or equal to 190 mg/dL HDL 50 >40 mg/dL Desirable HDL: greater than 40 mg/dL Note: This HDL assay may give artificially low results in patients with liver disease. Vit D 25-OH Tot 48.5 >30 ng/mL Health Based Reference Values* < 20 ng/mL Deficient 20-30 ng/mL Insufficient > 30 ng/mL Sufficient Coding Level of Care Code Est Pt Prev Care 40-64y(07167) Diagnoses Annual visit for general adult medical examination with abnormal findings Z00. Spondylolisthesis of lumbar region M43.16 Osteopenia of multiple sites M85.89 Encounter for screening for malignant neoplasm of colon Z12.11 Dyslipidemia E78.5 Multinodular thyroid E04.2 Symptomatic PVCs I49.3 Essential hypertension I10 Legally blind H54.8 Additional Codes SEJAL-7 Assessment Billing - SEJAL-7 Assessment Tool: SEJAL-7 Assessment 68883 ([id number]) PHQ-9 - 09757 - PHQ-9 Billing: Yes ([id number]) Assessment & Plan Assessment & Plan (1) Annual visit for general adult medical examination with abnormal findings: Code(s): Z00.01 - Encounter for general adult medical examination with abnormal findings (2) Spondylolisthesis of lumbar region: Code(s): M43.16 - Spondylolisthesis, lumbar region Category: Medical (3) Osteopenia of multiple sites: Code(s): M85.89 - Other specified disorders of bone density and structure, multiple sites Category: Medical (4) Encounter for screening for malignant neoplasm of colon: Code(s): Z12.11 - Encounter for screening for malignant neoplasm of colon (5) Dyslipidemia: Code(s): E78.5 - Hyperlipidemia, unspecified Category: Medical (6) Multinodular thyroid: Code(s): E04.2 - Nontoxic multinodular goiter Category: Medical (7) Symptomatic PVCs: Comment: Seen by [facility] cardiology in [facility] August 2022 and started on metoprolol ER Code(s): I49.3 - Ventricular premature depolarization Category: Medical (8) Essential hypertension: Code(s): I10 - Essential (primary) hypertension Category: Medical (9) Legally blind: Comment: sees Dr villalta and a specialst in [place] Code(s): H54.8 - Legal blindness, as defined in [place] Category: Medical Plan -reviewed recent fasting lab results with patient with elevated LDL cholesterol and mild elevation and calcium levels noted - Continue physical therapy regimen as scheduled and monitor for any significant changes in symptoms. - Attend the pain management appointment and follow-up for further evaluation. Patient however requesting a referral to [facility] neurosurgery for 2nd opinion - Adhere to Vitamin D supplementation daily, particularly during winter months. - Monitor blood pressure consistently at home and report any symptomatic hypotension. - Schedule a follow-up colonoscopy with Dr. Morris - If no feedback from specialists within ten days, please let us know - Refrain from activities that intensify back discomfort, such as heavy lifting or twisting motions.s. - Schedule annual evaluations, including physicals, as advised. -up-to-date with her vaccines -currently followed by Dr. Villalta for her routine eye exam and glaucoma follow-up -continue with metoprolol succinate ER 12.5 mg daily to control PVC, as prescribed by her clinical trials assistant Orders: Orders XR DEXA axial skeleton 04/30/24 M85.89 - Other specified disorders of bone density and structure, multiple sites Referrals Gastroenterology Referral Z12.11 - Encounter for screening for malignant neoplasm of colon Neurosurgery Referral M43.16 - Spondylolisthesis, lumbar region
== END 2024-04-30 14:24 | disposition home or self-care (01) ==
LOC: HO.HMCC 13:06
PROVIDERS: PCP Internal Medicine; Visit Provider Internal Medicine
DX: Z00.00 Encounter for general adult medical examination without abnormal findings (principal); M43.16 Spondylolisthesis, lumbar region; M85.89 Other specified disorders of bone density and structure, multiple sites; Z12.11 Encounter for screening for malignant neoplasm of colon; E78.5 Hyperlipidemia, unspecified; E04.2 Nontoxic multinodular goiter; I49.3 Ventricular premature depolarization; I10 Essential (primary) hypertension; H54.8 Legal blindness, as defined in USA

== ENCOUNTER → 2024-04-30 13:06 | Outpatient (BNVA) | payer MEDICARE, MEDICAID, SELFPAY | PROVIDERS: PCP Internal Medicine; Visit Provider Internal Medicine | DX: Z00.01 Encounter for general adult medical examination with abnormal findings (principal); M43.16 Spondylolisthesis, lumbar region; M85.89 Other specified disorders of bone density and structure, multiple sites; E78.5 Hyperlipidemia, unspecified; E04.2 Nontoxic multinodular goiter; I49.3 Ventricular premature depolarization; I10 Essential (primary) hypertension; H54.8 Legal blindness, as defined in USA | CPT/HCPCS: 96127; 99396 ==

== ENCOUNTER 2024-05-04 10:09 | Outpatient (AMB) | payer MEDICARE, MEDICAID, SELFPAY ==
--- NOTE | 2024-05-04 10:15 | A.OFFVIS_ITS ---
Vital Signs 05/04/24 10:17 Height 5 ft 5 in Weight 148 lb BMI 24.6 BP 142/96 H Blood Pressure Location Lt brachial Position Sitting Respiration 16 Pulse 78 Pulse Source Pulse Oximeter Pulse Oximetry (%) 97 Oxygen Delivery Method Room Air Intake Visit Reasons: Spondylolisthesis, lumbar region Industrial Sales Engineer Required: No Allergies codeine Adverse Reaction (Unknown, Verified 05/06/24 23:16) Nausea Medication List - Last Reconciled 05/04/24 by Tanja Cantrell LPN biotin (Hair, Skin and Nails (biotin)) mcg PO blood pressure monitor check blood pressure once a day as directed lisinopril 2.5 mg PO DAILY metoprolol succinate ER 12.5 mg PO DAILY timolol maleate 0.5% 0 drps ophthalmic (eye) HPI HPI Spondylolisthesis, lumbar region: Details: History of Present Illness The patient is a 63-year-old female presenting with low back pain. She reports a history of low back pain persisting over 30 years, with worsening symptoms in recent weeks. Her pain has necessitated visits to the emergency room after it was exacerbated by activity. Imaging studies show a grade 2 spondylolisthesis at L5-S1 and foraminal stenosis. She has attempted management with ibuprofen, lidocaine patches, and physical therapy without significant improvement. Pain Description - Onset: 30 years ago, worsening in recent weeks - Quality: Radiating ache - Location: Lower back, primarily the sacrum, groin, and right buttock - Radiation: Occasionally down the right thigh - Exacerbating Factors: Movement, twisting, bending, lifting - Alleviating Factors: Ice application, physical therapy exercises Physical Exam - Musculoskeletal- No pain elicited on straight leg raising bilaterally Results - CT Scan: 10 mm vertebral shift at L5-S1 - MRI: Foraminal stenosis, 8 mm shift, grade 2 spondylolisthesis at the L5-S1 level Pain Management - Affect: Pain impacting sleep and functional capacity - Analgesia: Taking [id number] medications with insufficient relief, current pain level significant - Adverse Effects: None reported - Activities of Daily Living: Difficulty with movement and daily tasks, functional impairment due to pain - Aberrant Drug Related Behaviors: None reported [facility] Medical History (Updated 04/30/24 @ 14:24 by Ely Terry MD) Osteopenia of multiple sites Symptomatic PVCs Hair thinning Dyslipidemia Family history of thyroid disease Multinodular thyroid Closed fracture of right clavicle Early menopause occurring in patient age younger than 45 years Legally blind Hx of retinal detachment Essential hypertension Surgical History Hx of skin graft History of broken collarbone Hx of eye surgery Family History Mother Laryngeal cancer Father Thyroid disorder Stomach cancer Sister Thyroid disorder Breast cancer Social History Housing: Condominium Alcohol intake: current Alcohol intake frequency: a few times a month Patient Tobacco Use Status: Former Tobacco user Tobacco use type: Cigarette e-Cigarette/Vaping Use: Never Used Current occupational status: disabled Cognitive needs: No Hearing needs: No Vision needs: Yes Female Reproductive History Menstrual Age of Menarche: 15 Physical Exam Vital Signs: Last Vital Signs Pulse 78 05/04/24 10:17 Resp 16 05/04/24 10:17 BP 142/96 H 05/04/24 10:17 Pulse Ox 97 05/04/24 10:17 Oxygen Delivery Method Room Air 05/04/24 10:17 BMI result Body Mass Index 24.6 Assessment & Plan Assessment & Plan (1) Spondylolisthesis of lumbar region: Code(s): M43.16 - Spondylolisthesis, lumbar region Category: Medical Plan Plan After reviewing the imaging findings of lumbar spondylolisthesis and foraminal stenosis, I recommended possible management approaches, including nerve ablation for pain relief, or cortisone injections. Despite these measures, surgical intervention may ultimately be necessary due to progressive slippage. We will continue monitoring the condition while strengthening the core through physical therapy. For immediate pain relief, tizanidine as a muscle relaxant was prescribed, ensuring no interaction with glaucoma. Patient was informed and verbally consented to the use of an ambient scribe for clinic note documentation during this visit. Discussion Notes During the visit, we discussed the patient's imaging results, which confirmed grade 2 spondylolisthesis and foraminal stenosis at L5-S1. I explained the potential for surgical intervention to prevent further slippage and nerve compression. We discussed non-invasive alternatives such as nerve ablation and cortisone injections to alleviate current pain symptoms. The patient was informed of the benefits and limitations of these procedures, including potential side effects and the temporary nature of relief. I advised her to continue physical therapy to enhance core strength and minimize additional vertebral slippage. We also discussed medication modifications to avoid any adverse effects related to her glaucoma. The patient was encouraged to contact the office if further interventions are needed. Patient Instructions - Continue physical therapy for core strengthening. - Use prescribed tizanidine for muscle relaxation. - Avoid activities that involve twisting, bending, or lifting heavy objects. - Use ice to alleviate pain as needed. - Schedule follow-up appointments as needed for further symptom management or if pain exacerbates. - Contact the office if experiencing increased pain or ineffective relief from tizanidine. Medications: New tizanidine 4 mg PO TID PRN 60 caps 0RF muscle spasticity Coding Level of Care Code New Pt Level 4 (96409) Diagnoses Spondylolisthesis of lumbar region M43.16
[2024-05-04 10:17] VITALS: BP 142/96; PULSE 78; RESP 16; O2SAT 97; BMI 24.6
--- OUTSIDE RECORDS SUMMARY | 2024-05-04 11:02 | XMS_ITS | Patient Health Record ---
Author Organization [facility] Address [address] [place] [address] Care Team Providers Care Social Media Intern Name Role Phone Esteban GARSIA, Shara Primary Care Provider Cedric Ingram Unavailable [phone] ALLERGIES Allergen (clinical drug ingredient) Drug/Non Drug Allergy documented on EMR Reaction Allergy Type Onset Date Status codeine Codeine Sulfate Unknown Drug Allergy A ctive REASON FOR REFERRAL No Information MEDICATIONS Medication SIG (Take, Route, Frequency, Duration) Notes Start Date End Date Status Colyte with Flavor Packs 227.1 GM As directed Orally As directed for 1 day(s) 06/07/2013 Active Timolol Maleate 0.5% Active SOCIAL HISTORY Sex Assigned At : Social History Observation Description Sex Assigned At Unknown PROBLEMS Problem Type ICD Code Onset Dates Problem Status W/U Status Risk SNOMED Code Notes Problem Colon cancer screening (V76.51) Active confirmed Colon cancer screening (765110122) PLAN OF TREATMENT Future Test Test Name Order Date COLONOSCOPY 06/07/2013 Insurance Providers Payer Name Payer Address Payer Phone Subscriber Number Group Number Insured Name Patient Relationship to Insured Coverage Start Date Coverage End Date MEDICARE OF [place] [address] [place] [id number] [phone] [id number] IMANI HARRIS Self - patient is the insured [facility] [address] [place] [phone] [id number] IMANI HARRIS Self - patient is the insured MEDICAL (GENERAL) HISTORY Medical History History ICD Code Denies [place],DM,CVA,Lung disease,renal dise ase Glaucoma Surgical History Surgery Date(Month/Year) retinal detachment surgery--both eyes 20 04/2003 Skin graft on left foot
== END 2024-05-04 11:13 | disposition home or self-care (01) ==
PROVIDERS: PCP Internal Medicine; Visit Provider Internal Medicine
DX: M43.16 Spondylolisthesis, lumbar region (principal)
CPT/HCPCS: 99204

== ENCOUNTER → 2024-05-04 10:09 | Outpatient (BNVA) | payer MEDICARE, MEDICAID, SELFPAY | PROVIDERS: PCP Internal Medicine; Visit Provider Internal Medicine | DX: M43.16 Spondylolisthesis, lumbar region (principal) | CPT/HCPCS: 99202 ==

== ENCOUNTER 2024-05-22 08:29 | Outpatient (RCR) | payer MEDICARE, MEDICAID, SELFPAY ==
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
--- NOTE | 2024-06-07 11:25 | MHC.PT.DC ---
[facility] [place] Office [place] Office [place] Office [address] Esmer Parry [address] [phone] F: [phone] F: [phone] F: [phone] F: [phone] Physical Therapy Discharge Report Diagnosis: Spondylolisthesis Date of Surgery: N/A Date of Evaluation: 03/16/24 Date of Discharge: 05/22/24 Treatments to Date: 14 Cancellations to Date: 0 No Shows to Date: 0 Discharge Status: Achieved Goals Improved Function Independent with HEP Discharge Summary: Carlita has progressed well in PT. She has met goals of PT and is DCed to HEP on this date. A comprehensive written HEP was issued and she was advised to cont independently with program and contact our office with any questions or concerns Electronically signed by: Kailey Denis PT DPT Please sign and return to therapist. Thank you for your referral.
== END 2024-06-07 11:25 | disposition home or self-care (01) ==
LOC: HO.PT 08:29
PROVIDERS: PCP Internal Medicine; Visit Provider Physician Assistant
DX: M43.16 Spondylolisthesis, lumbar region (principal)
CPT/HCPCS: 97110; 97161; 97530; 97535

== ENCOUNTER 2024-06-05 09:26 | Outpatient (AMB) | payer MEDICARE, MEDICAID, SELFPAY ==
[2024-06-05 09:48] VITALS: BP 122/80; PULSE 60; O2SAT 98
--- NOTE | 2024-06-05 09:48 | AM.OFFWIN_ITS ---
Intake Vital Signs 06/05/24 09:48 Weight 147 lb BP 122/80 Blood Pressure Location Rt brachial Position Sitting Pulse 60 Pulse Source Pulse Oximeter Pulse Oximetry (%) 98 Oxygen Delivery Method Room Air Intake Visit Reasons: EP blockage on RT ear Intake Note: Patient here for right ear blockage that has been present for over 1 week. Patient Tobacco Use Status: Former Tobacco user Allergies codeine Adverse Reaction (Unknown, Verified 06/05/24 09:48) Nausea Medication List - Last Reconciled 06/05/24 by Irma Bonds MD biotin (Hair, Skin and Nails (biotin)) mcg PO blood pressure monitor check blood pressure once a day as directed lisinopril 2.5 mg PO DAILY metoprolol succinate ER 12.5 mg PO DAILY timolol maleate 0.5% 0 drps ophthalmic (eye) tizanidine 4 mg PO TID PRN HPI EP blockage on RT ear HPI Details History The patient is a 63 year old female presenting with ear blockage. - The patient noted blockage in the righ t ear for about one week, following a longer period of ear discomfort spanning a couple of months. - Previous intervention by Dr. Harrison guevara an annual visit did not resolve the blockage. - The use of D-Brux for cerumen removal has led to a perceived loosening of the blockage after two boxes. - Her historical difficulty with ear bal ance due to scuba diving may be relevant. - The patient denied sore throat, fever, or headache, suggesting isolation to cerumen impaction. Problem List - Cerumen impaction in the right ear Procedure: Right ear was irrigated with lukewarm water with good result Post irrigation ear is clear patient tolerated procedure well Review of Systems - General: No fever no chills - Neurological: No headaches no dizziness - Ear nose throat: No sore throat - Cardiovascular: No syncope, no chest pain, no palpitations - Gastrointestinal: No nausea vomiting or diarrhea Physical Exam General: No acute distress HEENT: Right ear totally blocked with wax, and clear after irrigation without any inflammation or signs of infection patient is able to hear well now Neck: Supple Respiratory system: Able to talk in full sentences, no audible wheeze WAREHOUSEMAN: Alert awake oriented x3 motor sensory intact Skin: Normal turgor [facility] Medical History Osteopenia of multiple sites Symptomatic PVCs Hair thinning Dyslipidemia Family history of thyroid disease Multinodular thyroid Closed fracture of right clavicle Early menopause occurring in patient age younger than 45 years Legally blind Hx of retinal detachment Essential hypertension Surgical History Hx of skin graft History of broken collarbone Hx of eye surgery Family History Mother Laryngeal cancer Father Thyroid disorder Stomach cancer Sister Thyroid disorder Breast cancer Social [place] [facility] [place] intake: current Alcohol intake frequency: a few times a month Patient Tobacco Use Status: Former Tobacco user Tobacco use type: Cigarette e-Cigarette/Vaping Use: Never Used Current occupational status: disabled Cognitive needs: No Hearing needs: No Vision needs: Yes Female Reproductive History Menstrual Age of Menarche: 15 Physical Exam Vital Signs: Last Vital Signs Pulse 60 06/05/24 09:48 BP 122/80 06/05/24 09:48 Pulse Ox 98 06/05/24 09:48 Oxygen Delivery Method Room Air 06/05/24 09:48 Office Procedures Cerumen Removal From which ear canal was the cerumen removed: right Removal: irrigation Notes: patient tolerated procedure well, no complications and ear canal clear [id number] Irrigation/Lavage Assessment & Plan Assessment & Plan (1) Hearing difficulty of right ear: Code(s): H91.91 - Unspecified hearing loss, right ear (2) Impacted cerumen, right ear: Code(s): H61.21 - Impacted cerumen, right ear Plan History The patient is a 63 year old female presenting with ear blockage. - The patient noted blockage in the right ear for about one week, following a longer period of ear discomfort spanning a couple of months. - Previous intervention by Dr. Terry during an annual visit did not resolve the blockage. - The use of D-Brux for cerumen removal has led to a perceived loosening of the blockage after two boxes. - Her historical difficulty with ear balance due to scuba diving may be relevant. - The patient denied sore throat, fever, or headache, suggesting isolation to cerumen impaction. Problem List - Cerumen impaction in the right ear Procedure: Right ear was irrigated with lukewarm water with good result Post irrigation ear is clear patient tolerated procedure well Coding Level of Care Code Est Pt Level 3 (19335) Diagnoses Hearing difficulty of right ear H91.91 Impacted cerumen, right ear H61.21 CPT Codes Office Procedure - CPT: 02413-[id number] Irrigation/Lavage ([id number])
== END 2024-06-05 10:19 | disposition home or self-care (01) ==
PROVIDERS: PCP Internal Medicine; Visit Provider Internal Medicine
DX: H91.91 Unspecified hearing loss, right ear (principal); H61.21 Impacted cerumen, right ear

== ENCOUNTER → 2024-06-05 09:26 | Outpatient (BNVA) | payer MEDICARE, MEDICAID, SELFPAY | PROVIDERS: PCP Internal Medicine; Visit Provider Internal Medicine | DX: H61.21 Impacted cerumen, right ear (principal) | CPT/HCPCS: 69209; 99212 ==

== ENCOUNTER 2024-11-08 09:24 | Outpatient (AMB) | payer MEDICARE, MEDICAID, SELFPAY ==
[2024-11-08 09:35] VITALS: BP 136/90; PULSE 72; TEMP 36.9; O2SAT 95; BMI 24.5
--- NOTE | 2024-11-08 09:35 | AM.OFFWIN_ITS ---
Intake Vital Signs 11/08/24 09:35 Height 5 ft 5 in Weight 147 lb 4 oz BMI 24.5 BP 136/90 H Blood Pressure Location Rt brachial Position Sitting Pulse 72 Pulse Source Pulse Oximeter Temp 98.4 F Temp Source Oral Pulse Oximetry (%) 95 Oxygen Delivery Method Room Air Intake Visit Reasons: EP-rt ear pain Patient Tobacco Use Status: Former Tobacco user Licensed Audiologist Required: No Is last menstrual period known: No Post menopausal: Yes Patient : No Allergies codeine Adverse Reaction (Unknown, Verified 11/08/24 09:40) Nausea Do you need a note to return to daycare/school/sports/work: No HPI HPI Comments History of Present Illness Details History - The patient is a 63-year-old female pr esenting with ear pain and tinnitus. - The patient reports sharp, stabbing ea r pain occurring intermittently, with recent exacerbation. - Tinnitus is described as a high-pitche d ringing, occurring as frequently as the ear pain. - No associated cold symptoms, headache, congestion, runny nose, sore throat, or fever are present. - History of ear wax buildup, with last cleaning in May. - Past scuba diving incident 30 years ag o may have contributed to ear sensitivity. - Gradual hearing loss on the affected s joseph, with occasional fluttering sensations. - Loud noises make her ear pain worse. - She denies DOUGLAS, fever, chills, sore thr oat, CP, SOB, abd pain, n/v/d. Physical Exam General: Cooperative, healthy appearing, comfortable, no acute distress and well developed Head: Normal to inspection Ears: External ears normal bilaterally. No tragus or mastoid tenderness noted. No cerumen noted in the canal. TM's visualized. No bulging noted. No discharge or fluid noted. Face and sinus: Normal facial exam. No TTP of the sinuses. Neck: Normal visual inspection. Full ROM. No lymphadenopathy noted. Respiratory: Normal respiratory effort and able to speak in complete sentences. Clear to auscultation bilaterally. No w/r/r noted. Cardiac: RRR, no m/r/g noted. Normal S1 and S2 noted. Patient was informed and verbally consented to the use of an ambient scribe for clinic note documentation during this visit. [facility] Medical History Osteopenia of multiple sites Symptomatic PVCs Hair thinning Dyslipidemia Family history of thyroid disease Multinodular thyroid Closed fracture of right clavicle Early menopause occurring in patient age younger than 45 years Legally blind Hx of retinal detachment Essential hypertension Surgical History Hx of skin graft History of broken collarbone Hx of eye surgery Family History Mother Laryngeal cancer Father Thyroid disorder Stomach cancer Sister Thyroid disorder Breast cancer Social History Housing: Condominium Alcohol intake: current Alcohol intake frequency: a few times a month Patient Tobacco Use Status: Former Tobacco user Tobacco use type: Cigarette e-Cigarette/Vaping Use: Never Used Patient : No Current occupational status: disabled Cognitive needs: No Hearing needs: No Vision needs: Yes Female Reproductive History Menstrual Age of Menarche: 15 Review of Systems Const All systems reviewed & are unremarkable except as noted in HPI and below Physical Exam Vital Signs: Last Vital Signs Temp 98.4 F 11/08/24 09:35 Pulse 72 11/08/24 09:35 BP 136/90 H 11/08/24 09:35 Pulse Ox 95 11/08/24 09:35 Oxygen Delivery Method Room Air 11/08/24 09:35 BMI result Body Mass Index 24.5 Assessment & Plan Assessment & Plan (1) Right ear pain: Code(s): H92.01 - Otalgia, right ear Plan Most likely cerumen impaction vs OM vs OE vs ET dysfunction vs trauma has hearing loss and is concerned since she legally blind Plan- -will refer to ENT for an evaluation - Referral was placed today - follow up with PCP Orders: Referrals Ear/Nose/Throat Referral H92.01 - Otalgia, right ear Coding Level of Care Code Est Pt Level 3 (40617) Diagnoses Right ear pain H92.01
--- OUTSIDE RECORDS SUMMARY | 2024-11-08 09:59 | XMS_ITS | Patient Health Record ---
Author Organization [facility] Address [address] [place] [address] Care Team Providers Care Other Sports Coach Or Instructor Name Role Phone Harrison PATEL, Ely Primary Care Provider Cedric Crespo Unavailable [phone] Allergies Allergen (clinical drug ingredient) Drug/Non Drug [...] Status Risk Notes Problem Colon cancer screening (324402341) Colon cancer screening (V76.51) Active confirmed Problem Colon cancer screening (531910092) Colon cancer screening (Z12.11) Active confirmed Problem Preprocedural examination (133917248252767) Preprocedural examination (Z01.818) Active confirmed Vital Signs Blood pressure diastolic 77 mm Hg 08/28/2024 Height 64 in 08/28/2024 Blood pressure systolic 111 mm Hg 08/28/2024 Weight 148 lbs 08/28/2024 BMI 25.4 kg/m2 08/28/2024 Procedures Procedure Date Ordered Date Performed Result Body Sit e COLONOSCOPY 08/28/2024 N/A Encounters Encounter Location Date Provider Diagnosis [facility] [address] [place] [address] 08/28/2024 Cedric Morris Colon cancer screeni ng [...] Lomeli Alexandra , 11/19/2024 10:40:00 AM, 5 [facility] , [place], [place], [phone], Insurance Providers Payer Name Payer Address Payer Phone Subscriber Number Group Number Insured Name Patient Relationship to Insured Coverage Start Date Coverage End Date MEDICARE OF [place] [address] [place] [address] [phone] [id number] IMANI HARRIS Self - patient is the insured 5 MEDICAID OF [employer] [facility] [address] [place] [address] [id number] IMANI HARRIS Self - patient is the insured Medical (General) History Medical History History ICD Code Denies [place],DM,CVA,Lung disease,renal dise ase Glaucoma/Detached retinas--legally blind Hypertension Spondylolithesis Takes Metoprolol for PVC's Negative screening colonoscopy in 2013 Surgical History Surgery Date(Month/Year) Skin graft on left foot Retinal detachment surgery--both eyes--p oor vision in the left eye
--- OUTSIDE RECORDS SUMMARY | 2024-11-08 09:59 | XMS_ITS | Clinical Summary ---
Author Organization [facility] Address [address] [address] Phone Care Team Providers Care Tableau Analyst Name Role Phone Ely Terry MD Primary [...] Payer (Ef fective 2004-Present) Name:Imani Lewis Member ID:[id number] Relation to Subscriber:Self Name:IMANI LEWIS Subscriber ID:[id number] Payer ID:[id number] Group ID:Not on file Type:Medicare Address: [employer] [address] [place], [place] [id number] [place] [address] MEDICARE PART A & B Member Subscriber Plan / Payer ( fective 2004-Present) Name:Imani Lewis Member ID:[id number] Relation to Subscriber:Self Name:Imani Lewis Subscriber ID:[id number] Payer ID:[id number] Group ID:Not on file Type:Medicare Address: [employer] [address] [place] [address] MEDICARE PART A & B [facility] [place] [address] MEDICARE PART A & B Member Subscriber Plan / Payer ( fective 2004-Present) Name:JoshuaImani gill Abelardo Member ID:[id number] Relation to Subscriber:Self Name:Imani Lewis Subscriber ID:[id number] Payer ID:[id number] Group ID:Not on file Type:Medicare Address: School [employer]missions [address] [place], [place] [phone] [facility] [place] [address] MEDICARE PART A & B [facility] [place] [id number] MED[facility]ARE PART A & B [facility] [place] [address] MEDICARE PART A & B Member Subscriber Plan / Payer (Ef fective 2004-Present) Name:Imani Lewis Member ID:[id number] Relation to Subscriber:Self Name:Imani Lewis Subscriber ID:[id number] Payer ID:[id number] Group ID:Not on file Type:Medicare Address: [facility] [address] B Member Subscriber Plan / Payer (Ef fective 2004-Present) Name:Imani Lewis Member ID:[id number] Relation to Subscriber:Self Name:Imani Lewis Subscriber ID:[id number] Payer ID:[id number] Group ID:Not on file Type:Medicare Address: School Admissions [address] [place] [phone] [facility] Care Teams Tableau Analyst Relationship Specialty Start Date End Date Ely Terry MD [address] [place] [address] PCP - General Internal Medicine 03/27/24 Additional Source Comments The information contained in this document represents components of the legal health record. It is not the complete legal health record.[facility]
== END 2024-11-08 10:39 | disposition home or self-care (01) ==
PROVIDERS: PCP Internal Medicine; Visit Provider Physician Assistant Medical
DX: H92.01 Otalgia, right ear (principal)

== ENCOUNTER → 2024-11-08 09:24 | Outpatient (BNVA) | payer MEDICARE, MEDICAID, SELFPAY | PROVIDERS: PCP Internal Medicine; Visit Provider Physician Assistant Medical | DX: H92.01 Otalgia, right ear (principal) | CPT/HCPCS: 99212 ==

== ENCOUNTER 2024-11-19 09:20 | Day surgery (SDC) | payer MEDICARE, MEDICAID, SELFPAY ==
--- OUTSIDE RECORDS SUMMARY | 2024-10-17 14:34 | XMS_ITS | Patient Health Record ---
Author Organization [facility] Address [address] [place] [address] Care Team Providers Care Lighting Director Name Role Phone Harrison PATEL, Ely Primary Care Provider Cedric Crespo Unavailable [phone] Allergies Allergen (clinical drug ingredient) Drug/Non Drug Allergy documented on EMR Reaction Allergy Type Onset Date Status codeine Codeine Sulfate stomach upset Drug Allergy Active Reason For Referral No Information Medications Medication SIG (Take, Route, Frequency, Duration) Notes Start Date End Date Status Lisinopril 2.5 MG Oral for 90 Days Active Metoprolol Succinate ER 25 MG 1/2 tablet Oral Once a day for 90 days Active Timolol Maleate 0.5% Active Problems Problem Type SNOMED Code ICD Code Onset Dates Problem Status W/U Status Risk Notes Problem Colon cancer screening (391416656) Colon cancer screening (V76.51) Active confirmed Problem Colon cancer screening (082531281) Colon cancer screening (Z12.11) Active confirmed Problem Preprocedural examination (042455139964972) Preprocedural examination (Z01.818) Active confirmed Vital Signs Blood pressure diastolic 77 mm Hg 08/28/2024 Height 64 in 08/28/2024 Blood pressure systolic 111 mm Hg 08/28/2024 Weight 148 lbs 08/28/2024 BMI 25.4 kg/m2 08/28/2024 Procedures Procedure Date Ordered Date Performed Result Body Sit e COLONOSCOPY 08/28/2024 N/A Encounters Encounter Location Date Provider Diagnosis [facility] [address] [place] [address] 08/28/2024 Cedric Morris Colon cancer screeni ng Z12.11 and Preprocedural examination Z01.818 Assessments Encounter Date Diagnosis (ICD Code) Assessment Notes Treatment Notes Treatment Clinical Notes Section Notes 08/28/2024 Colon cancer screening (ICD-10 - Z12.11) .Overall, Imani appears quite well. Given her age, good clinical appearance, and negative screening colonoscopy over 10 years ago, I did recommend a follow-up colonoscopy for further screening purposes. We did review the rationale for this in regard to colon cancer prevention. Full consent has been obtained for this, including risks of bleeding and perforation. The procedure will be done with monitored anesthesia care. Imani was comfortable with this plan. Thank you again for allowing me to participate in Imani's care. I shall continue to keep you advised of her progress. 08/28/2024 Preprocedural examination (ICD-10 - Z01.818) .Overall, Imani appears quite well. Given her age, good clinical appearance, and negative screening colonoscopy over 10 years ago, I did recommend a follow-up colonoscopy for further screening purposes. We did review the rationale for this in regard to colon cancer prevention. Full consent has been obtained for this, including risks of bleeding and perforation. The procedure will be done with monitored anesthesia care. Imani was comfortable with this plan. Thank you again for allowing me to participate in Imani's care. I shall continue to keep you advised of her progress. Plan Of Treatment Pending Test Test Name Order Date COLONOSCOPY 08/28/2024 Future Test Test Name Order Date COLONOSCOPY 06/07/2013 Next Appt Details Provider Name:Cedric Lomeli Alexandra , 11/19/2024 10:40:00 AM, 5 [facility] , [place], [place], [id number], Insurance Providers Payer Name Payer Address Payer Phone Subscriber Number Group Number Insured Name Patient Relationship to Insured Coverage Start Date Coverage End Date MEDICARE OF [place] [address] [place] [address] [phone] [id number] IMANI HARRIS Self - patient is the insured 5 [facility]ICA[facility] [address] [place] [address] [phone] [id number] IMANI HARRIS Self - patient is the insured Medical (General) History Medical History History ICD Code Denies [place],DM,CVA,Lung disease,renal dise ase Glaucoma/Detached retinas--legally blind Hypertension Spondylolithesis Takes Metoprolol for PVC's Negative screening colonoscopy in 2013 Surgical History Surgery Date(Month/Year) Skin graft on left foot Retinal detachment surgery--both eyes--p oor vision in the left eye
--- OUTSIDE RECORDS SUMMARY | 2024-10-17 14:34 | XMS_ITS | Clinical Summary ---
Author Organization [facility] Address [address] [address] Phone Care Team Providers Care Rat Poisoner Name Role Phone Ely Terry MD Primary Care Provider Allergies No known active allergies Medications metoprolol succinate (TOPROL-XL) 25 MG 24 hr tablet Take 25 mg by mouth daily. Active multivitamin Liqd Take 5 mL by mouth daily. Active Active Problems Problem Noted Date Diagnosed Date Posterior vitreous detachment of right eye 07/06 PCO (posterior capsular opacification), right Band keratopathy of left eye 04/11/2017 Glaucoma 10/07/2015 Overview (04/17/2016): Glaucoma H/O ear injury 06/24/2015 Overview (04/17/2016): H/o Ear injury; from scuba diving Spondylolisthesis 06/24/2015 Overview (04/17/2016): Spondylolisthesis Ventricular premature beats 06/24/2015 Overview (04/17/2016): Ventricular premature contractions Uncoded H/O Detached retina 06/24/2015 Overview (04/17/2016): H/O Detached retina Family History Medical History Relation Comments Breast cancer Father Retinal degeneration Maternal Uncle Relation Status Comments Father Maternal Uncle Social History Tobacco Use Types Packs/Day Years Used Date Smoking Tobacco: Former Smokeless Tobacco: Former Alcohol Use Standard Drinks/Week Comments Yes 1 (1 standard drink = 0.6 oz pur e alcohol) oca Education Answer Date Recorded Are you interested in more education? Not on lópez e 07/23/2022 Are you concerned about learning? Not on file 07/23/2022 No 07/23/2022 No 07/23/2022 Digital Access Answer Date Recorded No 08/23/2022 No 08/23/2022 No 08/23/2022 Reliable internet access at home? Not on file 08/23/2022 Device with a working camera? Not on file Comments Unknown Sex and Gender Information Value Date Recorded Sex Assigned at Not on file Legal Sex Female 10:40 AM EST Gender Identity Not on file Sexual Orientation Not on file Plan of Treatment Health Maintenance Due Date Last Done Comments LIPID PANEL 1962 DEPRESSION SCREENING 1974 SMOKING Hx and SMOKELESS TOBACCO SCREENING 12/07/1975 HEPATITIS C SCREENING 1980 HIV ONE-TIME SCREENING (18-6 5 YEARS) 1980 PAP SMEAR 12/07/1983 MAMMOGRAM 2002 COLOGUARD 12/07/2007 COLONOSCOPY 12/07/2007 COLORECTAL CANCER SCREENING 12/07/2007 FIT TEST 12/07/2007 FOBT 12/07/2007 SIGMOIDOSCOPY 12/07/2007 VIRTUAL COLONOSCOPY 12/07/2007 PNEUMOCOCCAL VACCINES (50+ years) (1 of 1 - PCV) 2012 ZOSTER VACCINES (1 of 2) 2012 COVID-19 VACCINE (3 - 2023-2 5 season) 2023 08/16/2020, 07/18/2020 Adult Td,Tdap Booster 05/07/2025 05/07/2015 RSV VACCINE (1 - 1-dose 75+ series) 2037 HEPATITIS A VACCINES Aged Out No long er eligible based on patient's age to complete this topic HIB VACCINES Aged Out No longer eligi ble based on patient's age to complete this topic MENINGOCOCCAL VACCINES (ACWY) Aged Out No longer eligible based on patient's age to complete this topic MENINGOCOCCAL VACCINES (B) Aged Out N o longer eligible based on patient's age to complete this topic Medical Devices Not on file Insurance MEDICARE PART A & B Member Subscriber Plan / Payer (Ef fective 2004-Present) Name:Imani Lewsi Member ID:[id number] Relation to Subscriber:Self Name:IMANI LEWIS Subscriber ID:[id number] Payer ID:[id number] Group ID:Not on file Type:Medicare Address: [employer] [address] [place], [place] [id number] [place] [address] MEDICARE PART A & B Member Subscriber Plan / Payer ( fective 2004-Present) Name:Imani Lewis Member ID:[id number] Relation to Subscriber:Self Name:Imani Lewis Subscriber ID:[id number] Payer ID:[id number] Group ID:Not on file Type:Medicare Address: [employer] [address] [place] [address] MEDICARE PART A & [place] [address] MEDICARE PART A & B Member Subscriber Plan / Payer ( fective 2004-Present) Name:JoshuaImani gill Abelardo Member ID:[id number] Relation to Subscriber:Self Name:Imani Lewis Subscriber ID:[id number] Payer ID:[id number] Group ID:Not on file Type:Medicare Address: [employer] [address] [place], [place] [phone] [place] [address] MEDICARE PART [facility] & [facility] [place] [address] MEDICARE PART A & B [facility] [place] [address] MEDICARE PART A & B Member Subscriber Plan / Payer (Ef fective 2004-Present) Name:Imani Lewis Member ID:[id number] Relation to Subscriber:Self Name:Imani Lewis Subscriber ID:[id number] Payer ID:[id number] Group ID:Not on file Type:Medicare Address: [employer] [address] [facility] B Member Subscriber Plan / Payer (Ef fective 2004-Present) Name:Imani Lewis Member ID:[id number] Relation to Subscriber:Self Name:Imani Lewis Subscriber ID:[id number] Payer ID:[id number] Group ID:Not on file Type:Medicare Address: [employer] [address] [place] [phone] [facility] Care Teams Rat Poisoner Relationship Specialty Start Date End Date Ely Terry MD [address] [place] [address] PCP - General Internal Medicine 03/27/24 Additional Source Comments The information contained in this document represents components of the legal health record. It is not the complete legal health record.[facility]
[2024-11-15 15:40] VITALS: BMI 25.4
--- NOTE | 2024-11-16 09:34 | P.CONAN_ITS ---
Documented by User: Jeanette Rivers NP 11/16/24 09:35 HPI - Anesthesia Eval Consult details Narrative: 63 yr old female for colonoscopy Frequent PVCs: follows with [facility] cardiology, on low dose metoprolol, cleared for colonoscopy by cardiology via addendum 09/2024 [facility] Active Problems Active Problems: All Active Problems Impacted cerumen, right ear (Acute) Hearing difficulty of right ear (Acute) Spondylolisthesis of lumbar region (Acute) Osteopenia of multiple sites (Acute) Symptomatic PVCs (Acute) Dyslipidemia (Acute) Multinodular thyroid (Acute) Closed fracture of right clavicle (Acute) Legally blind (Acute) Essential hypertension (Acute) Past Medical History Medical History (Updated 11/19/24 @ 09:32 by Anna Beltran RN) Spine degeneration HTN (hypertension) Osteopenia Osteopenia of multiple sites Symptomatic PVCs Hair thinning Dyslipidemia Family history of thyroid disease Multinodular thyroid Closed fracture of right clavicle Early menopause occurring in patient age younger than 45 years Legally blind Hx of retinal detachment Essential hypertension Family History Family History Mother Laryngeal cancer Father Thyroid disorder Stomach cancer Sister Thyroid disorder Breast cancer Surgical History Surgical History (Updated 11/19/24 @ 09:32 by Anna Beltran RN) H/O colonoscopy H/O colonoscopy Hx of skin graft History of broken collarbone Hx of eye surgery Social History [facility] Alcohol intake: current Alcohol intake frequency: does not drink Patient Tobacco Use Status: Former Tobacco user Tobacco use type: Cigarette e-Cigarette/Vaping Use: Never Used Have you been hit, kicked, punched, or otherwise hurt by someone within the past year? If so, by whom?: No Are you DNR?: No Advance Directives: No Advance Directives Information Provided: Yes Current occupational status: disabled Cognitive needs: No Hearing needs: No Vision needs: Yes Meds Allergies Allergy/AdvReac Type Severity Reaction Status Date / Time codeine AdvReac Unknown Nausea Verified 11/08/24 09:40 Home Medications ?Medication ?Instructions ?Recorded ?Confirmed ?Last Taken ?Type timolol maleate 0.5 % eye drops 0 drp ophthalmic (eye) 02/06/05/24 11/19/24 History metoprolol succinate 25 mg 12.5 mg PO DAILY 11/19/21 0 11/15/24 Unknown History tablet,extended release 24 hr Exam Height,Weight and Vital Signs: Height 5 ft 4 in Weight 67.132 kg Documented by User: Kulwant Marcelo MD 11/19/24 10:16 [facility] Past Medical History Medical History (Updated 11/19/24 @ 09:32 by Anna Beltran, RN) Spine degeneration HTN (hypertension) Osteopenia Osteopenia of multiple sites Symptomatic PVCs Hair thinning Dyslipidemia Family history of thyroid disease Multinodular thyroid Closed fracture of right clavicle Early menopause occurring in patient age younger than 45 years Legally blind Hx of retinal detachment Essential hypertension Family History Family History Mother Laryngeal cancer Father Thyroid disorder Stomach cancer Sister Thyroid disorder Breast cancer Family history of problems with anesthesia: No Surgical History Surgical History (Updated 11/19/24 @ 09:32 by Anna Beltran, GRIS) H/O colonoscopy H/O colonoscopy Hx of skin graft History of broken collarbone Hx of eye surgery History of Problems with Anesthesia: No Social History Social History Housing: Condominium Alcohol intake: current Alcohol intake frequency: does not drink Patient Tobacco Use Status: Former Tobacco user Tobacco use type: Cigarette e-Cigarette/Vaping Use: Never Used Have you been hit, kicked, punched, or otherwise hurt by someone within the past year? If so, by whom?: No Are you DNR?: No Advance Directives: No Advance Directives Information Provided: Yes Current occupational status: disabled Cognitive needs: No Hearing needs: No Vision needs: Yes Meds Allergies Allergy/AdvReac Type Severity Reaction Status Date / Time codeine AdvReac Unknown Nausea Verified 11/08/24 09:40 Home Medications ?Medication ?Instructions ?Recorded ?Confirmed ?Last Taken ?Type timolol maleate 0.5 % eye drops 0 drp ophthalmic (eye) 05/15/21 06/05/24 11/19/24 History metoprolol succinate 25 mg 12.5 mg PO DAILY 11/19/21 0 11/15/24 Unknown History tablet,extended release 24 hr Exam Airway Mallampati Class: II TM Dist: >3cm Neck ROM: Full Loose/Missing/Broken Teeth: No Heart: RRR Lungs: CTA Assessment and Plan Assessment Anesthesia Assessment: Anesthesia Plan Discussed and Chart Reviewed Final Anesthetic Review Family History of Problems with Anesthesia: No History of Problems with Anesthesia: No NPO: Yes ASA Class: II Patient Risk: Low Procedure Risk: Low Anesthetic Plan Anesthetic Plan: MAC: Disposition: Standard PACU
[2024-11-19 09:24] VITALS: BP 147/105; PULSE 76; RESP 18; TEMP 36.1; O2SAT 98; BMI 24.7
[2024-11-19] MEDS: Lactated Ringers 1,000 ML 100 ML IVCONT (09:43)
[2024-11-19 11:45] VITALS: BP 119/84; PULSE 80; RESP 16; TEMP 36.1; O2SAT 97
--- NOTE | 2024-11-19 11:47 | P.BOP_ITS ---
Brief Operative Note Date of Service: 11/19/24 Pre-op diagnosis: Screening Post-op diagnosis: other (Diverticulosis) Procedure: Colonoscopy to the cecum and TI Surgeon: Cedric Morris MD Anesthesia: MAC Was an Puff Iron Operator used for this Procedure?: No Estimated blood loss (mL): 0 Pathology: none sent Condition: stable Disposition: PACU
[2024-11-19 12:00] VITALS: BP 140/98; PULSE 68; RESP 20; TEMP 36.8; O2SAT 100
--- NOTE | 2024-11-19 22:49 | OP_ITS ---
DATE OF SERVICE: 11/19/2024 SURGEON: Cedric Morris MD INDICATIONS: The patient presents for evaluation of colorectal cancer screening. Full consent has been obtained from her for this, including risks of bleeding and perforation. PREOPERATIVE DIAGNOSIS: Colorectal cancer screening. POSTOPERATIVE DIAGNOSIS: PROCEDURE PERFORMED: Colonoscopy to the cecum and terminal ileum. ESTIMATED BLOOD LOSS: COMPLICATIONS: ANESTHESIA: Medication used, monitored anesthesia care. ASSISTANTS: SPECIMENS: POSTOPERATIVE DIAGNOSES: Colorectal cancer screening, sigmoid diverticulosis, and internal hemorrhoids. DESCRIPTION OF PROCEDURE: The patient was placed in the left lateral decubitus position. The digital rectal exam revealed no abnormalities. The Olympus video pediatric colonoscope was entered into the rectum and advanced easily to the cecum. Once in the cecum, I did identify a normal-appearing cecal pouch with appendiceal orifice and a normal-appearing ileocecal valve. The terminal ileum was cannulated and appeared normal. The scope was withdrawn back in the colon. The entire cecum and ileocecal valve appeared normal. The scope was slowly withdrawn assessing all mucosal surfaces carefully. Preparation was excellent. I did not visualize any sign of polyps, colitis, nor angiodysplasia. There was a mild amount of sigmoid diverticulosis. In the rectum, scope was retroflexed visualizing internal hemorrhoids, but no other pathology. The rectal mucosa appeared normal. The scope was straightened and withdrawn from the patient. She tolerated the procedure well and was returned to the recovery area in stable condition. IMPRESSION: 1. Diverticulosis. 2. Internal hemorrhoids. PLAN: Given today's negative exam and negative family history, I would recommend a followup colonoscopy in 10 years for further screening. She will otherwise see me on a p.r.n. basis. MD ISIDORO Rosa/NICOLE / [phone]
== END 2024-11-19 12:37 | disposition home or self-care (01) ==
PROVIDERS: PCP Internal Medicine; Visit Provider Internal Medicine
PROC: 0DJD8ZZ Inspection of Lower Intestinal Tract, Via Natural or Artificial Opening Endoscopic (ICD-10-PCS; CPT 45378; principal; 2024-11-19 10:40)
DX: Z12.11 Encounter for screening for malignant neoplasm of colon (principal); K57.30 Diverticulosis of large intestine without perforation or abscess without bleeding; K64.8 Other hemorrhoids; I10 Essential (primary) hypertension; Z87.891 Personal history of nicotine dependence; Z79.899 Other long term (current) drug therapy
CPT/HCPCS: G0121; J2003; J2704

== ENCOUNTER 2024-12-14 10:00 | Outpatient (RCR) | payer MEDICARE, MEDICAID, SELFPAY ==
[2024-10-31 09:09] VITALS: BP 141/90; PULSE 70
== END 2024-12-18 11:42 | disposition home or self-care (01) ==
LOC: HO.PT 10:00
PROVIDERS: PCP Internal Medicine; Visit Provider Orthopaedic Surgery
DX: M75.42 Impingement syndrome of left shoulder (principal)
CPT/HCPCS: 97033; 97110; 97112; 97161; 97530

== ENCOUNTER 2024-12-24 08:52 | Outpatient (REF) | payer MEDICARE, MEDICAID, SELFPAY ==
--- OUTSIDE RECORDS SUMMARY | 2024-11-19 06:40 | XMS_ITS ---
Author Organization [facility] Address [address] [place] [address] Care Team Providers Care Front End Specialist Name Role Phone Harrison PATEL, Ely Primary Care Provider Cedric Crespo [phone] REASON FOR VISIT screening Encounters Encounter Location Date Provider Diagnosis [facility] Outpatient [address] [facility] [place] [id number] 11/19/2024 Cedric Morris Plan Of Treatment No Information Progress Notes * MATTHEW HARRISOB:1960 (64 yo F)Acc No.[id number]:11/19/2024 COLON WITH MAC Patient: IMANI CHRISTENSEN Provider: Federica Morris MD :1960 A ge:63 Y S ex:Female Date:11/19/2024 Address:[address] [place] [address] DORYS Mcleod, Lisa LEMOS [facility] Pcp:Ely Terry MD Subjective: * Chief Complaints: [...] MD Date: 0 11/19/2024 Generated for Emilianai ng/Fachiog/eTransmitting on: 0 12/24/2024 09:21 AM EDT
--- OUTSIDE RECORDS SUMMARY | 2024-12-24 09:21 | XMS_ITS | Patient Health Record ---
Author Organization [facility] Address [address] [place] [address] Care Team Providers Care Hvac Installer Name Role Phone Harrison PATEL, Ely Primary Care Provider Cedric Crespo Unavailable [phone] Allergies Allergen (clinical drug ingredient) Drug/Non Drug [...] Status Risk Notes Problem Colon cancer screening (016335114) Colon cancer screening (V76.51) Active confirmed Problem Colon cancer screening (673244211) Colon cancer screening (Z12.11) Active confirmed Problem Preprocedural examination (234022461182446) Preprocedural examination (Z01.818) Active confirmed Vital Signs Blood pressure diastolic 77 mm Hg 08/28/2024 Height 64 in 08/28/2024 Blood pressure systolic 111 mm Hg 08/28/2024 Weight 148 lbs 08/28/2024 BMI 25.4 kg/m2 08/28/2024 Procedures Procedure Date Ordered Date Performed Result Body Sit e COLONOSCOPY 08/28/2024 N/A Encounters Encounter Location Date Provider Diagnosis [facility] Outpatient [address] [place] [phone] 11/19/2024 Cedric Morris [facility] [address] [place] [address] 08/28/2024 Cedric Morris Colon cancer screeni ng [...] Date MEDICARE OF [place] [address] [place] [address] [id number] IMANI HARRIS Self - patient is the insured 5 [facility] OF [place] [facility] [address] [place] [address] [id number] KIMBERLY IMANI Self - patient is the insured Medical (General) History Medical History History ICD Code Denies PR,DM,CVA,Lung disease,renal dise ase Glaucoma/Detached retinas--legally blind Hypertension Spondylolithesis Takes Metoprolol for PVC's Negative screening colonoscopy in 2013 Surgical History Surgery Date(Month/Year) Skin graft on left foot Retinal detachment surgery--both eyes--p oor vision in the left eye
--- OUTSIDE RECORDS SUMMARY | 2024-12-24 09:21 | XMS_ITS | Clinical Summary ---
Author Organization [facility] Address [address] [address] Phone Care Team Providers Care Chart Reader Name Role Phone Ely Terry MD Primary [...] - 2023-2 5 season) 2023 08/16/2020, 07/18/2020 INFLUENZA VACCINE (#1) 2024 Adult Td,Tdap Booster 05/07/2025 05/07/2015 RSV VACCINE [...] file Insurance MEDICARE PART A & B [id number] [place] [address] MEDICARE PART A [place] [address] MEDICARE PART A & B [facility] Member Subscriber Plan / Payer ([facility] 04/11/2017-Present) Name:Imani Lewis Relation to Subscriber:Self Name:Imani Lewis Payer ID:[id number] Group ID:Not on file Type:Medicaid Address: [address] [place] [address] [place] [address] MEDICARE PART A & B [facility] Member Subscriber Plan / Payer ([facility] 04/11/2017-Present) Name:Imani Lewis Relation to Subscriber:Self Name:Imani Lewis Payer ID:[id number] Group ID:Not on file Type:Medicaid Address: [address] [place] [address] [place] [address] MEDICARE PART A & B Member Subscriber Plan / Payer ( fective 2004-Present) Name:Imani Lewis Member ID:[id number] Relation to Subscriber:Self Name:Imani Lewis Subscriber ID:[id number] Payer ID:[id number] Group ID:Not on file Type:Medicare Address: [employer] [address] [place] [address] [place] [address] [place]IC[place] MED[place] A & B [facility] Care Teams Chart Reader Relationship Specialty Start Date End Date Ely Terry MD [address] [place] [address] PCP - General Internal Medicine 03/27/24 Additional Source Comments The information contained in this document represents components of the legal health record. It is not the complete legal health record.[facility]
[2024-12-24 09:41] VITALS: BP 157/93; PULSE 66; RESP 16; TEMP 36.3; O2SAT 99
[2024-12-24 09:42] VITALS: BMI 24.6
== END 2024-12-24 08:53 | disposition home or self-care (01) ==
LOC: HO.MS 08:52
PROVIDERS: PCP Internal Medicine; Visit Provider Ophthalmology
PROC: (CPT 67810; principal; 2024-12-24 11:30)
DX: D23.111 Other benign neoplasm of skin of right upper eyelid, including canthus (principal); L98.9 Disorder of the skin and subcutaneous tissue, unspecified; Z96.1 Presence of intraocular lens; H57.04 Mydriasis; H40.1134 Primary open-angle glaucoma, bilateral, indeterminate stage
CPT/HCPCS: 67810; 88304; J2004

== ENCOUNTER 2025-01-09 10:57 | Outpatient (REF) | payer MEDICARE, MEDICAID, SELFPAY ==
--- OUTSIDE RECORDS SUMMARY | 2024-11-19 06:40 | XMS_ITS ---
Author Organization [facility] Address [address] [place] [address] Care Team Providers Care Manager Utility Name Role Phone Harrison PATEL, Ely Primary Care Provider Cedric Crespo [phone] REASON FOR VISIT screening Encounters Encounter Location Date Provider Diagnosis [facility] [place] [address] [facility] [place] [id number] 11/19/2024 Cedric Morris Plan Of Treatment No Information Progress Notes * MATTHEW HARRISOB:1960 (64 yo F)Acc No.[id number]:11/19/2024 COLON WITH MAC Patient: IMANI CHRISTENSEN Provider: Federica Morris MD :1960 A ge:63 Y S ex:Female Date:11/19/2024 Address:[address] [place] [address] DORYS Mcleod, Lisa LEMOS [facility] Pcp:Ely Terry MD Subjective: * Chief Complaints: [...] 0 11/19/2024 Generated for Emilianai ng/Fachiog/eTransmitting on: 1 01:26 PM EDT
--- NOTE | ~2025-01-09 | MM_ITS ---
EXAMINATION: MM SCREENING DIGITAL BREAST TOMOSYNTHESIS, BILATERAL CLINICAL INFORMATION: Screening. Asymptomatic. COMPARISON: Comparison made to multiple prior, most recent January 04, 2024, and most remote October 05, 2017. TECHNIQUE: Digital breast tomosynthesis is performed in mediolateral oblique and craniocaudal views along with computer-aided detection (CAD). Synthesized 2D images are generated from the tomosynthesis. FINDINGS: BREAST COMPOSITION: The breasts are heterogeneously dense, which may obscure small masses. BILATERAL BREASTS: No significant masses, suspicious calcifications or other abnormalities are seen in either breast. MM/MM tomosynthesis screening BI IMPRESSION: BILATERAL BREASTS: Negative, no mammographic evidence of malignancy. Normal interval follow-up is recommended in 12 months. ASSESSMENT: BI-RADS: Category 1: Negative RECOMMENDATION: Routine annual mammography screening. FOLLOW-UP: 1 year F/U This examination should not preclude the clinical evaluation of a suspicious palpable abnormality. This patient's information was entered into a reminder system with a target due date for their next mammogram. Electronically signed by: Jesús Guillen MD 01/13/2025 07:17 AM EDT
--- NOTE | ~2025-01-09 | MM_ITS ---
EXAMINATION: DXA BONE DENSITY AXIAL HISTORY: M85.89 - Other specified disorders of bone density and structure, multip... History of fracture and osteoporosis. Risk factors: Early menopause, , secondary osteoporosis, low calcium intake. History of right clavicle fracture. TECHNIQUE: [employer] Dual energy absorptiometry (DEXA) of the lumbar spine, total left hip, and femoral neck was performed. COMPARISON: Comparison is made with the prior examinations most recent dated December 2021. FINDINGS: The bone mineral density of the lumbar spine is 1.011 g/cm2, corresponding to a T-score of -1.4, and a Z-score of -0,1 . This is indicative of osteopenia. This represents a BMD change of 1% compared to the prior exam. The bone mineral density of the left total hip is 0.861 g/cm2, corresponding to a T-score of -1.2, and a Z-score of -0.2. This is indicative of osteopenia. This represents a BMD change of -2.8% compared to the prior exam. The bone mineral density of the left femoral neck is 0.831 g/cm2, corresponding to a T-score of -1.5, and a Z-score of -0.2. This is indicative of osteopenia. This represents a BMD change of -3.9%% compared to the prior exam. FRACTURE RISK: The FRAX index suggests a ten year probability of major osteoporotic fracture of 14.4%, and of hip fracture 1.4%. MM/XR DEXA axial skeleton IMPRESSION: Based on bone mineral density and according to World Health Organization (WHO) criteria, the diagnosis is consistent with osteopenia. Statistically, 68% of repeat scans fall within 1 SD (+/- 0.010 g/cm2 for AP spine L1-L4) and 1 SD (+/- 0.012 g/cm2 for femur total) FRAX is a trademark of the [employer] [place] [employer] Metabolic Bone Disease, a World Health Organization (WHO) Collaborating Center. Electronically signed by: Kaylynn Chapin MD 01/09/2025 11:44 AM EDT
--- OUTSIDE RECORDS SUMMARY | 2025-01-09 13:26 | XMS_ITS | Patient Health Record ---
Author Organization [facility] Address [address] [place] [address] Care Team Providers Care Pediatric Urologist Name Role Phone Harrison PATEL, Ely Primary Care Provider Cedric Crespo Unavailable [phone] Allergies Allergen (clinical drug ingredient) Drug/Non Drug Allergy documented on EMR Reaction Allergy Type Onset Date Status codeine Codeine Sulfate stomach upset Drug Allergy Active Reason For Referral No Information Medications Medication SIG (Take, Route, Frequency, Duration) Notes Start Date End Date Status Lisinopril 2.5 MG Oral; Duration: 90 Days Active Metoprolol Succinate ER 25 MG 1/2 tablet Oral Once a day; Duration: 90 days Active Timolol Maleate 0.5% Active Problems Problem Type SNOMED Code ICD Code Onset Dates Problem Status W/U Status Risk Notes Problem Colon cancer screening (324014484) Colon cancer screening (V76.51) Active confirmed Problem Colon cancer screening (994279125) Colon cancer screening (Z12.11) Active confirmed Problem Preprocedural examination (367765055216505) Preprocedural examination (Z01.818) Active confirmed Vital Signs Blood pressure diastolic 77 mm Hg 08/28/2024 Height 64 in 08/28/2024 Blood pressure systolic 111 mm Hg 08/28/2024 Weight 148 lbs 08/28/2024 BMI 25.4 kg/m2 08/28/2024 Procedures Procedure Date Ordered Date Performed Result Body Sit e COLONOSCOPY 08/28/2024 N/A Encounters Encounter Location Date Provider Diagnosis [facility] Outpatient [address] [place], [place] [phone] 11/19/2024 Cedric Morris [facility] [address] [place] [address] 08/28/2024 Cedric Morris Colon cancer screeni ng [...] Start Date Coverage End Date MEDICARE OF [place] [address] [place] [address] [phone] [id number] ALLIE HARRISH Self - patient is the insured 5 [facility] OF [facility] [address] [place] [address] [id number] KIMBERLY IMANI Self - patient is the insured Medical (General) History Medical History History ICD Code Denies [place],DM,CVA,Lung disease,renal dise ase Glaucoma/Detached retinas--legally blind Hypertension Spondylolithesis Takes Metoprolol for PVC's Negative screening colonoscopy in 2013 Surgical History Surgery Date(Month/Year) Skin graft on left foot Retinal detachment surgery--both eyes--p oor vision in the left eye
--- OUTSIDE RECORDS SUMMARY | 2025-01-09 13:26 | XMS_ITS | Clinical Summary ---
Author Organization [facility] Address [address] [address] Phone Care Team Providers Care Pharm Tech Name Role Phone Ely Terry MD Primary [...] 2012 ZOSTER VACCINES (1 of 2) 2012 INFLUENZA VACCINE (#1) 2024 COVID-19 VACCINE (3 - 2024-2 6 season) 2024 08/16/2020, 07/18/2020 Adult Td,Tdap Booster 05/07/2025 05/07/2015 [...] file Insurance MEDICARE PART A & B [id number] [place] [address] MEDICARE PART A [place] [address] MEDICARE PART A & B [facility] [place] [address] MEDICARE PART A & [place] [place] [address] MEDICARE PART A & B Member Subscriber Plan / Payer ( fective 2004-Present) Name:Imani Lewis Member ID:[id number] Relation to Subscriber:Self Name:Imani Lewis Subscriber ID:[id number] Payer ID:[id number] Group ID:Not on file Type:Medicare Address: [employer] [address] [place] [address] [place] [address] MED[place] A [place] A & B [facility] Care Teams Pharm Tech Relationship Specialty Start Date End Date Ely Terry MD 1959 [facility] [place] [address] PCP - General Internal Medicine 03/27/24 Additional Source Comments The information contained in this document represents components of the legal health record. It is not the complete legal health record.[facility]
== END 2025-01-09 10:58 | disposition home or self-care (01) ==
LOC: HO.MAMMO 10:57
PROVIDERS: PCP Internal Medicine; Visit Provider Internal Medicine
DX: Z12.31 Encounter for screening mammogram for malignant neoplasm of breast (principal); Z13.820 Encounter for screening for osteoporosis; M85.89 Other specified disorders of bone density and structure, multiple sites
CPT/HCPCS: 77063; 77067; 77080

== ENCOUNTER → 2025-01-09 11:30 | Outpatient (BNV) | payer MEDICARE, MEDICAID, SELFPAY | PROVIDERS: PCP Internal Medicine; Visit Provider Radiology Diagnostic Radiology | DX: E28.39 Other primary ovarian failure (principal) | CPT/HCPCS: 77080 ==

== ENCOUNTER 2025-01-23 12:49 | Outpatient (AMB) | payer MEDICARE, MEDICAID, SELFPAY ==
--- OUTSIDE RECORDS SUMMARY | 2024-11-19 06:40 | XMS_ITS ---
Author Organization [facility] Address [address] [place] [address] Care Team Providers Care Technical Aide Name Role Phone Harrison PATEL, Ely Primary Care Provider Cedric Crespo [phone] REASON FOR VISIT screening Encounters Encounter Location Date Provider Diagnosis [facility] [place] [address] [facility] [place] [id number] 11/19/2024 Cedric Morris Plan Of Treatment No Information Progress Notes * MATTHEW HARRISOB:1960 (64 yo F)Acc No.[id number]:11/19/2024 COLON WITH MAC Patient: IMANI CHRISTENSEN Provider: Federica Morris MD :1960 A ge:63 Y S ex:Female Date:11/19/2024 Address:[address] [place] [address] DORYS Mcleod, Lisa LEMOS [facility] Pcp:Ely Terry MD Subjective: * Chief Complaints: [...] 11/19/2024 Generated for Emilianai ng/Fachiog/eTransmitting on: 1 04:08 PM EDT
--- NOTE | 2025-01-23 13:01 | MHC.OFFVIS ---
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 [employer] Ax Consultant concerns: none. Currently not sexually active. Denies any vaginal dryness or irritation. Attempting to eat a healthy diet with calcium and vitamin D and stays active with exercise-limited. Has a APPEALS ANALYST to help in the home. Last pap smear; 2023, negative. Last mammogram; 2024. Colonoscopy is UTD. Family history of breast cancer. [facility] Medical History Spine degeneration HTN (hypertension) Osteopenia Osteopenia of multiple sites Symptomatic PVCs Hair thinning Dyslipidemia Family history of thyroid disease Multinodular thyroid Closed fracture of right clavicle Early menopause occurring in patient age younger than 45 years Legally blind Hx of retinal detachment Essential hypertension Surgical History H/O colonoscopy H/O colonoscopy Hx of skin graft History of broken collarbone Hx of eye surgery Family History Mother Laryngeal cancer Father Thyroid disorder Stomach cancer Sister Thyroid disorder Breast cancer Social History Housing: Condominium Alcohol intake: current Alcohol intake frequency: does not drink Patient Tobacco Use Status: Former Tobacco user Tobacco use type: Cigarette e-Cigarette/Vaping Use: Never Used Current occupational status: disabled Cognitive needs: No Hearing needs: No Vision needs: Yes Female Reproductive History Menstrual Age of Menarche: 15 Total pregnancies: 0 Date of last pap smear: 08/17/23 (neg pap and hpv) Date of Mammogram: 01/09/25 (Birad 1) Date of last Bone Density Screenin01/09/25 Review of Systems Const All systems reviewed & are unremarkable except as noted in HPI and below Reports as per HPI Eyes Reports no additional complaints ENT Reports no additional complaints Card Reports no additional complaints Resp Reports no additional complaints GI Reports as per HPI and Reports no additional complaints Reports as per HPI Musc Reports no additional complaints Skin/Breast Reports as per HPI Neuro Reports no additional complaints Psych Reports no additional complaints Endo Reports no additional complaints Lai/Lymph Reports no additional complaints Aller/Immun Reports no additional complaints Physical Exam Vital Signs: Last Vital Signs BP 102/60 01/23/25 13:03 BMI result Body Mass Index 25.0 Const General: cooperative, healthy appearing, no acute distress, well developed and alert Orientation/consciousness: patient oriented x3 HEENT Head: Yes normal to inspection Eyes General: appearance normal, both eyes and all related structures Neck Neck: Yes normal visual inspection Thyroid: Thyroid normal Chest Chest palpation & inspection: normal inspection of the chest and other (no puckering, dimpling, peau de orange, retraction, discharge, masses) Breast/axilla inspection: normal inspection of the breasts Breast/axilla palpation: normal palpation of the breasts Resp Effort & Inspection: normal respiratory effort GI Inspection: Yes normal to inspection Palpation (GI): Soft to palpation Rectal Exam - Female: deferred General: Yes bladder normal to palpation External Female Exam: normal external appearance and normal appearance of the urethra Speculum Exam - Vagina: normal appearance of the vagina, normal palpation, normal vaginal discharge and vagina atrophic Speculum Exam - Cervix: normal appearance of the cervix and normal palpation Bimanual exam- vagina & uterus: normal bimanual exam, normal palpation, uterine size normal, bladder normal to palpation, normal palpation and non-tender Bimanual Exam- Adnexa, other: no masses Skin General skin exam: no rashes or lesions noted Rashes: no rashes Neuro General: patient oriented x3 Cognition (Neuro): normal cognition Extrem General: Yes normal to inspection Psych Attitude: cooperative Thought process: Normal thought process present Assessment & Plan Assessment & Plan (1) Encounter for well woman exam with routine gynecological exam: Code(s): Z01.419 - Encounter for gynecological examination (general) (routine) without abnormal findings Category: Medical Plan Discussed: Current recommendations for pap smears per ASCCP guidelines. Breast awareness, periodic self breast exams and yearly mammogram. Maintain a healthy lifestyle, well balanced diet including Calcium 1,200 mg and Vitamin D 600 IU daily, and routine exercise. Replens, vulvar balms and other OTC vaginal and skin care. Report any postmenopausal bleeding. Patient verbalizes understanding and agrees to the plan of care. She was given opportunity to ask questions and all questions were answered to the best of my ability. RTO in 1 year for annual director of strategic programs exam. This note is constructed using voice recognition software. While every effort has been made to ensure accuracy, top lifter errors may have been included. Coding Level of Care Code Est Pt Prev Care 40-64y(36767) Diagnoses Encounter for well woman exam with routine gynecological exam Z01.419
[2025-01-23 13:03] VITALS: BP 102/60; BMI 25.0
--- OUTSIDE RECORDS SUMMARY | 2025-01-23 16:09 | XMS_ITS | Patient Health Record ---
Author Organization [facility] Address [address] [place] [address] Care Team Providers Care Moth Proofer Name Role Phone Harrison PATEL, Ely Primary Care Provider Cedric Crespo Unavailable [phone] Allergies Allergen (clinical drug ingredient) Drug/Non Drug [...] Status Risk Notes Problem Colon cancer screening (652772768) Colon cancer screening (V76.51) Active confirmed Problem Colon cancer screening (579787332) Colon cancer screening (Z12.11) Active confirmed Problem Preprocedural examination (306563242377273) Preprocedural examination (Z01.818) Active confirmed Vital Signs Blood pressure diastolic 77 mm Hg 08/28/2024 Height 64 in 08/28/2024 Blood pressure systolic 111 mm Hg 08/28/2024 Weight 148 lbs 08/28/2024 BMI 25.4 kg/m2 08/28/2024 Procedures Procedure Date Ordered Date Performed Result Body Sit e COLONOSCOPY 08/28/2024 N/A Encounters Encounter Location Date Provider Diagnosis [facility] [place] Outpatient [address] [place], [place] [id number] 11/19/2024 Cedric Morris [facility] [address] [place] [address] 08/28/2024 Cedric Morris Colon cancer screeni ng [...] Start Date Coverage End Date MEDICARE OF [place] [address] TAISHA ROSENBERGLEXIGEORGE [address] [phone] [id number] ALLIE HARRISH Self - patient is the insured 5 MEDICAID OF [facility] [address] [place] [phone] [id number] KIMBERLY IMANI Self - patient is the insured Medical (General) History Medical History History ICD Code Denies OR,DM,CVA,Lung disease,renal dise ase Glaucoma/Detached retinas--legally blind Hypertension Spondylolithesis Takes Metoprolol for PVC's Negative screening colonoscopy in 2013 Surgical History Surgery Date(Month/Year) Skin graft on left foot Retinal detachment surgery--both eyes--p oor vision in the left eye
--- OUTSIDE RECORDS SUMMARY | 2025-01-23 16:09 | XMS_ITS | Clinical Summary ---
Author Organization [facility] Address [address] [address] Phone Care Team Providers Care Plan Rep Name Role Phone Ely Terry MD Primary [...] file Insurance MEDICARE PART A & B [id number] [place] [address] [place] [address] MED[address] PART A & [facility] Subscriber [facility] Name:Imani Lewis Relation to Subscriber:Self Name:Imani Lewis Payer ID:[id number] Group ID:Not on file Type:Medicaid Address: [address] [place] [address] [place] [address] MEDICARE PART A & [facility] Member Subscriber Plan / P[facility]Present) Name:Imani Lewis Relation to Subscriber:Self Name:Imani Lewis Payer ID:[id number] Group ID:Not on file Type:Medicaid Address: [address] [place] [address] [place] [address] MEDICARE PART A & B Member Subscriber Plan / Payer ( fective 2004-Present) Name:Imani Lewis Member ID:[id number] Relation to Subscriber:Self Name:Imani Lewis Subscriber ID:[id number] Payer ID:[id number] Group ID:Not on file Type:Medicare Address: [facility] [address] [place] [address] [place] [address] MEDICARE [place] A [place] MEDICARE PART A & B [facility] Care Teams Plan Rep Relationship Specialty Start Date End Date Ely Terry MD [address] [facility] [place] [address] PCP - General Internal Medicine 03/27/24 Additional Source Comments The information contained in this document represents components of the legal health record. It is not the complete legal health record.[facility]
== END 2025-01-23 13:45 | disposition home or self-care (01) ==
LOC: HO.HWS 12:49
PROVIDERS: PCP Internal Medicine; Visit Provider Advanced Practice Midwife
DX: Z01.419 Encounter for gynecological examination (general) (routine) without abnormal findings (principal)
CPT/HCPCS: 99396; 99459

== ENCOUNTER → 2025-01-23 12:49 | Outpatient (BNVA) | payer MEDICARE, MEDICAID, SELFPAY | PROVIDERS: PCP Internal Medicine; Visit Provider Advanced Practice Midwife | DX: Z01.419 Encounter for gynecological examination (general) (routine) without abnormal findings (principal) | CPT/HCPCS: 99396 ==

== ENCOUNTER 2025-02-08 08:12 | Outpatient (AMB) | payer MEDICARE, MEDICAID, SELFPAY ==
[2025-02-08 08:18] VITALS: BP 120/88; PULSE 77; TEMP 36.9; O2SAT 96; BMI 25.6
--- NOTE | 2025-02-08 08:18 | MHC.OFFWIV ---
Intake Vital Signs 02/08/25 08:18 Height 5 ft 5 in Weight 154 lb BMI 25.6 BP 120/88 Blood Pressure Location Rt brachial Position Sitting Pulse 77 Pulse Source Pulse Oximeter Temp 98.5 F Temp Source Oral Pulse Oximetry (%) 96 Oxygen Delivery Method Room Air Intake Visit Reasons: EP rt foot pain Intake Note: EP complains of a chronic rt foot pain for three years. Patient Tobacco Use Status: Former Tobacco user Allergies codeine Adverse Reaction (Unknown, Verified 02/08/25 08:26) Nausea Do you need a note to return to daycare/school/sports/work: No HPI HPI Comments History of Present Illness Details This is a 64-year-old female who previously had a L5-S1 diskectomy presenting for evaluation of a chronic tingling sensation in her right foot between her second and third toes on the plantar surface. Patient denies any previous injury or trauma to her right foot. Patient states that her pain is worse when walking. Patient has an appointment with podiatry next week however they requested that she be seen to have imaging performed. Patient has not been taking any medication for treatment of her discomfort. [facility] Medical History Spine degeneration HTN (hypertension) Osteopenia Osteopenia of multiple sites Symptomatic PVCs Hair thinning Dyslipidemia Family history of thyroid disease Multinodular thyroid Closed fracture of right clavicle Early menopause occurring in patient age younger than 45 years Legally blind Hx of retinal detachment Essential hypertension Surgical History H/O colonoscopy H/O colonoscopy Hx of skin graft History of broken collarbone Hx of eye surgery Family History Mother Laryngeal cancer Father Thyroid disorder Stomach cancer Sister Thyroid disorder Breast cancer Social History Housing: Condominium Alcohol intake: current Alcohol intake frequency: does not drink Patient Tobacco Use Status: Former Tobacco user Tobacco use type: Cigarette e-Cigarette/Vaping Use: Never Used Current occupational status: disabled Cognitive needs: No Hearing needs: No Vision needs: Yes Female Reproductive History Menstrual Age of Menarche: 15 Review of Systems Const All systems reviewed & are unremarkable except as noted in HPI and below Reports no additional complaints Musc Reports abnormal gait, Denies arthralgias, Denies joint swelling, Denies muscle weakness and Reports tingling (plantar surface right foot) Skin/Breast Reports system reviewed and no additional complaints, except as documented Neuro Reports abnormal gait and Reports tingling (plantar surface right foot) Psych Reports no additional complaints Endo Reports no additional complaints Physical Exam Vital Signs: Last Vital Signs Temp 98.5 F 02/08/25 08:18 Pulse 77 02/08/25 08:18 BP 120/88 02/08/25 08:18 Pulse Ox 96 02/08/25 08:18 Oxygen Delivery Method Room Air 02/08/25 08:18 BMI result Body Mass Index 25.6 Const General: cooperative, comfortable, no acute distress, well developed, alert, awake and Physically active; No ill appearing Nutritional Appearance: average body habitus Orientation/consciousness: patient oriented x3 Limitations: no limitations Skin Other: No erythema or edema noted of the right foot, dorsal or plantar surface, no warmth to touch. Neuro General: patient oriented x3 and Normal light touch and pain sensation (Feet bilaterally) Gait exam (Neuro): not antalgic and not ataxic Motor exam (neuro): 5/5 motor strength present throughout (right foot) Extrem Right lower extremity: normal capillary refill, no joint enlargement and foot Details: normal capillary refill, tenderness ( tingling with palpation of the distal 2nd and 3rd metatarsals of the right foot plantar surface) Location: of the plantar foot, tendon exam Details: active flexion normal and active extension normal and motor-sensory exam; no cyanosis and no edema Psych Appearance: grossly normal Mental Status: mental status grossly normal Insight: Good insight present (Psych) Judgement: Good judgement present (Psych) Results Reviewed Results Reviewed: X.ray reviewed Assessment & Plan Assessment & Plan (1) Right foot pain: Comment: Patient is experiencing chronic paresthesia of the right foot. Patient does not believe this has any relationship to her previous back surgery and will follow up with podiatry next week. Patient is declining any medication at this time including gabapentin or Lyrica. There are no acute findings noted on imaging of the right foot. Code(s): M79.671 - Pain in right foot Plan: Follow up with podiatry next week as previously scheduled. Orders: Orders XR foot RT min 3V Today M79.671 - Pain in right foot Coding Level of Care Code Est Pt Level 3 (00369) Diagnoses Right foot pain M79.671 Time Spent (min) 25
== END 2025-02-08 09:33 | disposition home or self-care (01) ==
PROVIDERS: PCP Internal Medicine; Visit Provider Physician Assistant
DX: M79.671 Pain in right foot (principal)

== ENCOUNTER 2025-02-08 08:12 | Outpatient (REF) | payer MEDICARE, MEDICAID, SELFPAY ==
--- OUTSIDE RECORDS SUMMARY | 2024-11-19 05:40 | XMS_ITS ---
Author Organization [facility] Address [address] [place] [address] Care Team Providers Care Automatic Seamer Name Role Phone Harrison PATEL, Ely Primary Care Provider Cedric Crespo [phone] REASON FOR VISIT screening Encounters Encounter Location Date Provider Diagnosis [facility] Outpatient [address] [facility] [place] [id number] 11/19/2024 Cedric Morris Plan Of Treatment No Information Progress Notes * MATTHEW HARRISOB:1960 (64 yo F)Acc No.[id number]:11/19/2024 COLON WITH MAC Patient: IMANI CHRISTENSEN Provider: Federica Morris MD :1960 A ge:63 Y S ex:Female Date:11/19/2024 Address:[address] [place] [address] DORYS Mcleod, Lisa LEMOS [facility] Pcp:Ely Terry MD Subjective: * Chief Complaints: * 1 . Screening. * Medical History: Objective: * Vitals: Assessment: Plan: * Treatment: * * The named appointment provid er may or may not be the originator of this progress note, and it is not deemed complete until electronically signed by the appointment provider. Sign off status: Pending * Provider: Federica Morris MD Date: 0 11/19/2024 Generated for Emilianai nanci/Lacey/eTransmitting on: 04/10/2024 09:09 AM EST
--- NOTE | ~2025-02-08 | XR_ITS ---
EXAMINATION: XR FOOT, RIGHT CLINICAL INFORMATION: M79.671 - Pain in right foot COMPARISON: None available. TECHNIQUE: AP, lateral, and oblique views of the right foot. FINDINGS: No acute cortical disruption or malalignment. No lytic or blastic lesions. No bony erosions. Joint spaces are preserved. No metallic or radiopaque foreign body. No subcutaneous emphysema. No joint effusion. XR/XR foot RT min 3V IMPRESSION: No acute fracture or dislocation. Negative exam. Electronically signed by: Luis Alfredo Gross MD 02/08/2025 09:07 AM BRENT
--- OUTSIDE RECORDS SUMMARY | 2025-02-08 09:09 | XMS_ITS | Clinical Summary ---
Author Organization [facility] Address [address] [address] Phone Care Team Providers Care Injection Molding Engineer Name Role Phone Ely Terry MD Primary [...] on patient's age to complete this topic IPV VACCINES Aged Out No longer eligi ble based on patient's age to complete this topic MENINGOCOCCAL VACCINES (ACWY) Aged Out No longer eligible based on patient's age to complete this topic MENINGOCOCCAL VACCINES (B) Aged Out N o longer eligible based on patient's age to complete this topic Medical Devices Not on file Insurance MEDICARE PART A & B MEDICARE PART A [place] [address] MEDIC[facility] PART A & [facility] [place] [place] A [place] [address] MEDICARE PART A & [facility] PART A & [facility] MEDIC[facility] PART A & [place] Care Teams Injection Molding Engineer Relationship Specialty Start Date End Date Ely Terry MD [address] [facility] [place] [address] PCP - General Internal Medicine 03/27/24 Additional Source Comments The information contained in this document represents components of the legal health record. It is not the complete legal health record.[facility]
--- OUTSIDE RECORDS SUMMARY | 2025-02-08 09:09 | XMS_ITS | Patient Health Record ---
Author Organization [facility] Address [address] [place] [address] Care Team Providers Care Platinum Smith Name Role Phone Harrison PATEL, Ely Primary Care Provider Cedric Crespo Unavailable [phone] Allergies Allergen (clinical drug ingredient) Drug/Non Drug [...] Status Risk Notes Problem Colon cancer screening (986951970) Colon cancer screening (V76.51) Active confirmed Problem Colon cancer screening (732975331) Colon cancer screening (Z12.11) Active confirmed Problem Preprocedural examination (881520178868159) Preprocedural examination (Z01.818) Active confirmed Vital Signs Blood pressure diastolic 77 mm Hg 08/28/2024 Height 64 in 08/28/2024 Blood pressure systolic 111 mm Hg 08/28/2024 Weight 148 lbs 08/28/2024 BMI 25.4 kg/m2 08/28/2024 Procedures Procedure Date Ordered Date Performed Result Body Sit e COLONOSCOPY 08/28/2024 N/A Encounters Encounter Location Date Provider Diagnosis [facility] [place] Outpatient [address] [place], [place] [id number] 11/19/2024 Cedric Morris [facility] [address] [place] [address] 08/28/2024 Cedric Morris Colon cancer screeni ng [...] Start Date Coverage End Date [place]ARE OF [place] [address] TAISHA ROSENBERGLEXIGEORGE [address] [id number] ALLIE HARRISH Self - patient is the insured 5 MEDICAID OF [facility] [address] [place] [phone] [id number] KIMBERLY IMANI Self - patient is the insured Medical (General) History Medical History History ICD Code Denies LA,DM,CVA,Lung disease,renal dise ase Glaucoma/Detached retinas--legally blind Hypertension Spondylolithesis Takes Metoprolol for PVC's Negative screening colonoscopy in 2013 Surgical History Surgery Date(Month/Year) Skin graft on left foot Retinal detachment surgery--both eyes--p oor vision in the left eye
== END 2025-02-08 08:13 | disposition home or self-care (01) ==
LOC: HO.HMGCX 08:12
PROVIDERS: PCP Internal Medicine; Visit Provider Physician Assistant
DX: M79.671 Pain in right foot (principal); R20.2 Paresthesia of skin
CPT/HCPCS: 73630; 99212

== ENCOUNTER → 2025-02-08 08:52 | Outpatient (BNV) | payer MEDICARE, MEDICAID, SELFPAY | PROVIDERS: PCP Internal Medicine; Visit Provider Radiology Diagnostic Radiology | DX: M79.671 Pain in right foot (principal) | CPT/HCPCS: 73630 ==

== ENCOUNTER 2025-02-14 09:58 | Outpatient (AMB) | payer MEDICARE, MEDICAID, SELFPAY ==
[2025-02-14 10:16] VITALS: BMI 25.6
--- NOTE | 2025-02-14 10:16 | A.OFFVIS_ITS ---
Vital Signs 02/14/25 10:16 Height 5 ft 5 in Weight 154 lb BMI 25.6 Intake Visit Reasons: Pain in RT Foot Intake Note: Carlita is a 64 year old female who presents today as a new patient for an evaluation of her right foot pain. Patient reports the pain has been going on for a few of years and has worsened recently. Pain is located in between her 2nd and 3rd toe. Recent imaging in her chart and she has not tried any previous treatment at this time. Allergies codeine Adverse Reaction (Unknown, Verified 02/14/25 10:23) Nausea HPI HPI Pain in RT Foot: Details: 64-year-old female with past medical history of spondylolisthesis, hypertension, legally blind from left eye, discectomy, presents for right foot pain. She describes her symptoms to be worse between the 2nd and 3rd toes. She describes it as a tingling and sharp sensation, worst on the bottom of the foot. Has not noticed a difference between narrow versus wide shoe-wear. Symptoms have been present for approximately 3 years. Patient also has lower back pain and has been to physical therapy in the past. She has a history of a right foot laceration which was treated with a soft tissue transfer foot which resulted in scarring to the bottom of her foot and numbness to her big toe. [facility] Medical History Spine degeneration HTN (hypertension) Osteopenia Osteopenia of multiple sites Symptomatic PVCs Hair thinning Dyslipidemia Family history of thyroid disease Multinodular thyroid Closed fracture of right clavicle Early menopause occurring in patient age younger than 45 years Legally blind Hx of retinal detachment Essential hypertension Surgical History H/O colonoscopy H/O colonoscopy Hx of skin graft History of broken collarbone Hx of eye surgery Family History Mother Laryngeal cancer Father Thyroid disorder Stomach cancer Sister Thyroid disorder Breast cancer Social History Housing: Condominium Alcohol intake: current Alcohol intake frequency: does not drink Patient Tobacco Use Status: Former Tobacco user Tobacco use type: Cigarette e-Cigarette/Vaping Use: Never Used Current occupational status: disabled Cognitive needs: No Hearing needs: No Vision needs: Yes Female Reproductive History Menstrual Age of Menarche: 15 Review of Systems Const All systems reviewed & are unremarkable except as noted in HPI and below Physical Exam Vital Signs: BMI result Body Mass Index 25.6 Extrem Other: *Bilateral Lower Extremity Focused Exam Vascular: DP/PT 2/4, CFT<3s to all digits, TG warm to cool, no pedal edema Derm: Diffuse xerosis bilateral feet. Healed red granular scarring to the plantar aspect of the right 1st Metatarsal-phalangeal joint from previous skin graft. Neuro: Negative Harrison's click. MSK: Mild tenderness on palpation of the distal 2nd interspace between the 2nd/3rd digits. No pain on palpation of the 2nd and 3rd Metatarsal-phalangeal joint, negative Marcello's test. Results Reviewed Results Reviewed: X-ray Read: 02/08/2025 X-ray right foot 3 views (AP, MO, Lateral) reviewed which shows no fractures, dislocations, or gross abnormalities. Narrow 2nd interspace, mildly elongated 2nd metatarsal I personally reviewed the imaging and my findings are listed above. Assessment & Plan Assessment & Plan (1) Interdigital neuroma of right foot: Comment: Right 2nd interspace Code(s): G57.81 - Other specified mononeuropathies of right lower limb Category: Medical Plan: * Reviewed right foot x-rays * Offered diagnostic/cortisone injection, which the patient refused * Referred for right foot MRI with and without contrast. * Follow up 2 months review MRI Orders: Orders MR foot RT wo/w con Today G57.81 - Other specified mononeuropathies of right lower limb Coding Level of Care Code New Pt Level 4 (31236) Diagnoses Interdigital neuroma of right foot G57.81 Time Spent (min) 35
--- OUTSIDE RECORDS SUMMARY | 2025-02-14 14:34 | XMS_ITS | Clinical Summary ---
Author Organization [facility] Address [address] [address] Phone Care Team Providers Care Rail Car Welder Name Role Phone Ely Terry MD Primary [...] file Insurance MEDICARE PART A & B [id number] [place] [address] MEDICARE PART A [place] [address] MEDICARE PART A & [place] [address] MEDICARE PART A & [place] [address] MEDICARE PART A & B Member Subscriber Plan / Payer ( fective 2004-Present) Name:Imani Lewis Member ID:[id number] Relation to Subscriber:Self Name:Imani Lewis Subscriber ID:[id number] Payer ID:[id number] Group ID:Not on file Type:Medicare Address: [employer] [address] [place] [address] [place] [address] MEDICARE PART A [place] MEDICARE PART A & B [facility] Care Teams Rail Car Welder Relationship Specialty Start Date End Date Ely Terry MD [address] [facility] [address] PCP - General Internal Medicine 03/27/24 Additional Source Comments The information contained in this document represents components of the legal health record. It is not the complete legal health record.[facility]
== END 2025-02-14 10:38 | disposition home or self-care (01) ==
LOC: HO.HPODS 09:58
PROVIDERS: PCP Internal Medicine; Visit Provider Student in an Organized Health Care Education/Training Program
DX: G57.81 Other specified mononeuropathies of right lower limb (principal)
CPT/HCPCS: 99204

== ENCOUNTER → 2025-02-14 09:58 | Outpatient (BNVA) | payer MEDICARE, MEDICAID, SELFPAY | PROVIDERS: PCP Internal Medicine; Visit Provider Student in an Organized Health Care Education/Training Program | DX: G57.81 Other specified mononeuropathies of right lower limb (principal) | CPT/HCPCS: 99202 ==

== ENCOUNTER → 2025-03-12 10:05 | Outpatient (BNV) | payer MEDICARE, MEDICAID, SELFPAY | PROVIDERS: Visit Provider Radiology Diagnostic Radiology | DX: M19.071 Primary osteoarthritis, right ankle and foot (principal); M25.474 Effusion, right foot | CPT/HCPCS: 73720 ==

== ENCOUNTER 2025-03-12 10:37 | Outpatient (REF) | payer MEDICARE, MEDICAID, SELFPAY ==
--- OUTSIDE RECORDS SUMMARY | 2024-11-19 05:40 | XMS_ITS ---
Author Organization [facility] Address [address] [place] [address] Care Team Providers Care Fire Code Inspector Name Role Phone Harrison PATEL, Ely Primary Care Provider Cedric Crespo [phone] REASON FOR VISIT screening Encounters Encounter Location Date Provider Diagnosis [facility] Outpatient [address] [facility] [place] [id number] 11/19/2024 Cedric Morris Plan Of Treatment No Information Progress Notes * MATTHEW HARRISOB:1960 (64 yo F)Acc No.[id number]:11/19/2024 COLON WITH MAC Patient: IMANI CHRISTENSEN Provider: Federica Morris MD :1960 A ge:63 Y S ex:Female Date:11/19/2024 Address:[address] [place] [address] DORYS Mcleod Lisa LEMOS [id number] Pcp:Ely Terry MD Subjective: * Chief Complaints: * S creening Billing Information: * Procedure Codes: * The named appointment provid er may or may not be the originator of this progress note, and it is not deemed complete until electronically signed by the appointment provider. Sign off status: Pending * Provider: Federica Morris MD Date: 0 11/19/2024 Generated for John christine/Lacey/eTransmitting on: 1 05/13/2024 01:29 PM EST
--- NOTE | ~2025-03-12 | MR_ITS ---
EXAMINATION: MR FOOT WITHOUT AND WITH CONTRAST, RIGHT IV contrast: 7 mm Gadavist TECHNIQUE: Multiplanar multisequence MR imaging was performed through the right foot. INDICATION: Pain in the second web space of the right foot PRIOR: X-ray on 12/09/2024 FINDINGS: Lisfranc ligament: The main Lisfranc ligament demonstrates increased signal with central fluid signal consistent with a partial tear. Soft tissues/Vides's Neuroma: There is an area between the second and third MCP joints measures 7 x 2.5 x 6 mm (AP by transverse by CC). On T1 imaging, it is isointense to muscle. On fluid sensitive sequences, it is high intermediate signal. With contrast, it demonstrates minimal evidence of enhancement. No other soft tissue abnormalities are seen. There is no muscle edema, atrophy, or fatty streaking. There is no superficial soft tissue mass, fluid collection, or edema. Metatarsophalangeal (MTP) joint and sesamoids of the great toe: The central fibrocartilage of the plantar plate complex is thin but intact. Sesamoids are unremarkable. There is a joint effusion. Lesser MTP joints & Plantar plates: Borderline joint effusions are present in the second fifth MTP joints. Plantar plate complexes are intact. Joint capsule structures are intact. Bones/Marrow: Minimal degenerative marrow signal is present in the central first metatarsal head adjacent to the articulation with the medial sesamoid. Bone marrow signal is physiologic otherwise. 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 There is a 7 x 2.5 x 6 mm mass in the second web space. 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 Joint effusions of the first - fifth MTP joints. Chronic degeneration or partial tear of the central fibrocartilage of the first plantar plate complex. Mild degenerative change involving the articulation of the medial sesamoid and first metatarsal head. Electronically signed by: Wander Nunez MD 03/12/2025 12:15 PM [facility]
--- OUTSIDE RECORDS SUMMARY | 2025-03-12 13:29 | XMS_ITS | Patient Health Record ---
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 Name Role Phone Harrison PATEL, Ely Primary Care Provider Cedric Crespo Unavailable [phone] Allergies Allergen (clinical drug ingredient) Drug/Non Drug Allergy documented on EMR Reaction Allergy Type Onset Date Status codeine Codeine Sulfate stomach upset Drug Allergy Active Reason For Referral No Information Medications Medication SIG (Take, Route, Frequency, Duration) Notes Start Date End Date Status Lisinopril 2.5 MG Tablet Oral; Duration: 90 Days Active Metoprolol Succinate ER 25 MG Tablet Extended Release 24 Hour 1/2 tablet Oral Once a day; Duration: 90 days Active Timolol Maleate 0.5% Active Social History Social History Additional Details Category Social Info Options Details Miscellaneous: Marital status: single Occupation: disabled Section Notes: Nonsmoker since 2008; no sig alcohol Nonsmoker since 2008; no sig alcohol Problems Problem Type SNOMED Code ICD Code Onset Dates Problem Status W/U Status Risk Notes Problem Colon cancer screening (424692055) Colon cancer screening (V76.51) Active confirmed Problem Colon cancer screening (432929956) Colon cancer screening (Z12.11) Active confirmed Problem Preprocedural examination (095952625327287) Preprocedural examination (Z01.818) Active confirmed Vital Signs Blood pressure diastolic 77 mm Hg 08/28/2024 Height 64 in 08/28/2024 Blood pressure systolic 111 mm Hg 08/28/2024 Weight 148 lbs 08/28/2024 BMI 25.4 kg/m2 08/28/2024 Procedures Procedure Date Ordered Date Performed Result Body Sit e COLONOSCOPY 08/28/2024 N/A Encounters Encounter Location Date Provider Diagnosis [facility] Outpatient [address] [place], [place] [id number] 11/19/2024 Cedric Morris [facility] [address] [place] [address] 08/28/2024 Cedric Morris Colon cancer screeni ng [...] Start Date Coverage End Date MEDICARE OF [place] [address] [place] [address] [id number] IMANI HARRIS Self - patient is the insured 5 [place] [address] [place] [address] [id number] IMANI HARRIS Self - patient is the insured Medical (General) History Medical History History ICD Code Denies ND,DM,CVA,Lung disease,renal dise ase Glaucoma/Detached retinas--legally blind Hypertension Spondylolithesis Takes Metoprolol for PVC's Negative screening colonoscopy in 2013 Surgical History Surgery Date(Month/Year) Retinal detachment surgery--both eyes--p oor vision in the left eye Skin graft on left foot
--- OUTSIDE RECORDS SUMMARY | 2025-03-12 13:29 | XMS_ITS | Clinical Summary ---
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 Name Role Phone Ely Terry MD Primary [...] file Insurance MEDICARE PART A & B [id number] [place] [address] [place] [address] [facility]ICARE [facility] A [facility] Member Subscriber [facility] / [facility] Name:Imani Lewis Relation to Subscriber:Self Name:Imani Lewis Payer ID:[id number] Group ID:Not on file Type:Medicaid Address: [address] [place] [address] [place] [address] MEDICARE PART A & [facility] Member Subscriber Plan / Payer ([facility]Present) Name:Imani Lewis Relation to Subscriber:Self Name:Imani Lewis Payer ID:[id number] Group ID:Not on file Type:Medicaid Address: [address] [place] [address] [place] [address] MEDICARE PART A & B Member Subscriber Plan / Payer ( fective 2004-Present) Name:Imani Lewis Member ID:[id number] Relation to Subscriber:Self Name:Imani Lewis Subscriber ID:[id number] Payer ID:[id number] Group ID:Not on file Type:Medicare Address: [employer] [address] [place] [address] [place] [address] MEDICARE [place] [facility] PART [place] & [facility] Care Teams Dry Cell And Battery Assembler Relationship Specialty Start Date End Date Ely Terry MD [address] [address] PCP - General Internal Medicine 03/27/24 Additional Source Comments The information contained in this document represents components of the legal health record. It is not the complete legal health record.[facility]
== END 2025-03-12 10:38 | disposition home or self-care (01) ==
LOC: HO.MRI 10:37
PROVIDERS: Visit Provider Student in an Organized Health Care Education/Training Program
DX: G57.81 Other specified mononeuropathies of right lower limb (principal)
CPT/HCPCS: 73720; A9585